=== PATIENT | male | born 1960 | race American Indian/Alaskan Native ===

== ENCOUNTER 2016-12-15 03:51 | Emergency (ER) | payer MEDICAID ==
[~2016-12-15] VITALS: Ht 170.2 cm; Wt 70.0 kg
[2016-12-15] MEDS ORDERED: PROPOFOL 0 ML IV ONE (03:58)
[2016-12-15] MEDS ORDERED: PROPOFOL 10 MG/ML, 20ML ONE (03:58)
[2016-12-15 07:08] VITALS: BP 106/70
== END 2016-12-15 08:40 | disposition home or self-care (01) ==
LOC: ED 08:15 → EDBD 08:15 → MERGE 08:15 → ED 08:40
DX: F10.20 Alcohol dependence, uncomplicated (principal); Y90.9 Presence of alcohol in blood, level not specified
CPT/HCPCS: 99283

== ENCOUNTER 2017-06-26 09:45 | Emergency (ER) | payer MEDICAID ==
[~2017-06-26] VITALS: Ht 167.6 cm; Wt 68.0 kg
[2017-06-26 09:50] VITALS: BP 119/78
[2017-06-26] MEDS ORDERED: MORPHINE SULFATE 4 MG/ML, 1ML IVPush PRN (10:30)
[2017-06-26] MEDS ORDERED: SODIUM CHLORIDE 0.9% 1,000ML IV ONE (10:30)
[2017-06-26] MEDS ORDERED: SODIUM CHLORIDE FLUSH 10ML SYR IVF ONE (10:30)
[2017-06-26 11:19] LABS: HEMOGLOBIN 15.1 g/dL (13.7-18.0); WHITE BLOOD COUNT 9.1 x10^3/uL (3.4-10)
[2017-06-26 11:31] LABS: ASPARTATE AMINO TRANSFERASE 23 U/L (15-37); BLOOD UREA NITROGEN 5 mg/dL (7-18)
== END 2017-06-26 13:43 | disposition left against medical advice (07) ==
LOC: ED 10:11
DX: G89.29 Other chronic pain (principal); M54.5 Low back pain; Z95.0 Presence of cardiac pacemaker; Z95.1 Presence of aortocoronary bypass graft; Z95.2 Presence of prosthetic heart valve
CPT/HCPCS: 36415; 72110; 80053; 83605; 85025; 85651; 87040; 99285

== ENCOUNTER 2018-04-17 00:11 | Emergency (ER) | payer MEDICAID ==
[~2018-04-17] VITALS: Ht 182.9 cm; Wt 100.0 kg
[~2018-04-17 00:11] MED LIST: ACET325T14 PO; ARIP10TA33 PO; BENZ1TAB61 PO; CEFD300C37 PO; DOXY100T PO; IPRA3AMP30 NPPB; LACT10SO5 PO; PRED5TAB PO
[2018-04-17 00:18] VITALS: BP 114/68
== END 2018-04-17 01:39 | disposition home or self-care (01) ==
LOC: ED 01:01
DX: M79.671 Pain in right foot (principal); M79.672 Pain in left foot
CPT/HCPCS: 99283

== ENCOUNTER 2018-04-20 12:12 | Inpatient (IN) | payer MEDICAID ==
[~2018-04-20] VITALS: Ht 167.6 cm; Wt 78.6 kg
[2018-04-20] MEDS ORDERED: ACETAMINOPHEN 500 MG TABLET PO ONE (12:30)
[2018-04-20] MEDS ORDERED: SODIUM CHLORIDE 0.9% 1,000ML IVBOLUS ONE (12:30)
[2018-04-20 12:56] LABS: MEAN CORPUSCULAR HEMOGLOBIN 32.9 pg (27.5-34.5); MEAN CORPUSCULAR HGB CONC 34.2 g/dL (33.2-36.2); MEAN CORPUSCULAR VOLUME 96.2 fL (81-97); MEAN PLATELET VOLUME 8.4 fL (7.4-10.4); PLATELET COUNT 140 x10^3/uL (130-400); RED BLOOD COUNT 4.77 x10^6/uL (4.38-5.82); RED CELL DISTRIBUTION WIDTH 14.8 % (9.4-14.8)
[2018-04-20 13:07] LABS: ALANINE AMINOTRANSFERASE 32 U/L (12-78); ALBUMIN 3.4 g/dL (3.4-5.0); ANION GAP 4 mmol/L (5-15); CALCIUM 7.8 mg/dL (8.5-10.1); CHLORIDE 100 mmol/L (98-107); CREATININE 0.76 mg/dL (0.7-1.3)
[2018-04-20 13:09] LABS: ALKALINE PHOSPHATASE 76 U/L (45-117); BILIRUBIN,TOTAL 1.3 mg/dL (0.2-1.0); TOTAL PROTEIN 6.6 g/dL (6.4-8.2)
[2018-04-20 13:23] LABS: MD YES
[2018-04-20 13:25] LABS: <PLATELET ESTIMATE> ADEQUATE; <PLT MORPHOLOGY> NORMAL PLT MORPH; <RBC MORPHOLOGY> NORMAL; BAND#(MANUAL) 0.93 x10^3/uL; BANDS%(MANUAL) 7 % (0-7); LYMPH#(MANUAL) 0.27 x10^3/uL (1-3.4); LYMPHS% (MANUAL) 2 % (22-44); MONOS#(MANUAL) 0.27 x10^3/uL (0.3-2.7); MONOS% (MANUAL) 2 % (2-9); SEG#(MANUAL) 11.84 x10^3/uL (1.8-6.8); SEGS% (MANUAL) 89 % (42-75)
[2018-04-20 13:31] LABS: TROPONIN I 0.032 ng/mL (0.000-0.045)
[2018-04-20] MEDS ORDERED: ACETAMINOPHEN 500 MG TABLET ONE (14:02)
[2018-04-20] MEDS ORDERED: CEFTRIAXONE PMX 1GM/50ML 50 ML IV ONE (14:30)
[2018-04-20] MEDS ORDERED: FUROSEMIDE 40 MG/4 ML ONE (14:48)
[2018-04-20] MEDS ORDERED: CEFTRIAXONE PMX 1GM/50ML 50 ML ONE (14:49)
[2018-04-20] MEDS ORDERED: FUROSEMIDE 40 MG/4 ML IV ONE (15:00)
[2018-04-20] MEDS ORDERED: ENALAPRILAT 1.25 MG/ML, 2ML IVPush PRN (15:30)
[2018-04-20] MEDS ORDERED: ONDANSETRON 2MG/ML, 2ML IVPush PRN (15:30)
[2018-04-20] MEDS ORDERED: CEFTRIAXONE 1,000 MG in SODIUM CHLORIDE 0.9% 50 ML IV SCH (15:30)
[2018-04-20] MEDS ORDERED: ACETAMINOPHEN 325 MG TABLET PO PRN (15:30)
[2018-04-20] MEDS ORDERED: KETOROLAC 30 MG/1 ML IV PRN (15:30)
[2018-04-20] MEDS ORDERED: BISACODYL 10 MG SUPP PR PRN (15:30)
[2018-04-20] MEDS ORDERED: POLYETHYLENE GLYCOL 17 GM PACKET PO PRN (15:30)
[2018-04-20] MEDS ORDERED: DOCUSATE 100 MG CAPSULE PO PRN (15:30)
[2018-04-20 15:58] LABS: HCT (SEDRATE) 42.8 % (39.2-51.8)
[2018-04-20 16:02] LABS: INTERNATIONAL NORMALIZED RATIO 1.19 (0.93-1.1); PROTHROMBIN TIME 12.2 Seconds (9.6-11.5)
[2018-04-20 16:13] LABS: THYROID STIMULATING HORMONE 1.25 mIU/L (0.358-3.740)
[2018-04-20] MEDS ORDERED: ALBUTEROL/IPRATROPIUM 2.5MG/0.5MG, 3 ML NPPB PRN (16:30)
[2018-04-20] MEDS ORDERED: MAGNESIUM SULFATE PMX 2GM/50ML 50 ML IV ONE (17:00)
[2018-04-20] MEDS: SODIUM CHLORIDE 0.9% 1,000 ML IV SCH (17:46)
[2018-04-20 17:55] LABS: TROPONIN I 0.076 ng/mL (0.000-0.045)
[2018-04-20 18:16] LABS: MICROSCOPIC NOT IND
[2018-04-20 18:18] LABS: CULTURE INDICATED? NO
[2018-04-20 18:27] LABS: AMPHETAMINE SCREEN, URINE Negative (Negative); BARBITURATE SCREEN, URINE Negative (Negative); BENZODIAZEPINE SCREEN, URINE Negative (Negative); CANNABINOID SCREEN, URINE Positive (Negative); COCAINE SCREEN, URINE Negative (Negative); METHADONE SCREEN, URINE Negative (Negative); OPIATE SCREEN, URINE Negative (Negative)
[2018-04-20] MEDS: ENOXAPARIN 40 MG/0.4 ML SQ SCH (18:32)
[2018-04-20 18:38] LABS: RAPID INFLUENZA A Negative (Negative); RAPID INFLUENZA B Negative (Negative)
[2018-04-20] MEDS: ALBUTEROL/IPRATROPIUM 2.5MG/0.5MG, 3 ML NPPB SCH (19:25)
[2018-04-20] MEDS: DOXYCYCLINE 100 MG in DEXTROSE 5% 250 ML IV SCH (20:12)
[2018-04-20] MEDS: methylPREDNISolone SOD SUCC 125 MG/2 ML IVPush SCH (20:14)
[2018-04-20] MEDS: GUAIFENESIN ER 600 MG TABLET PO SCH (20:15)
[2018-04-20] MEDS: LACTULOSE 20 GM/30 ML UDC PO SCH (20:17)
[2018-04-20 20:24] VITALS: BP 103/65
[2018-04-20] MEDS ORDERED: VANCOMYCIN PMX 1GM/200ML 200 ML IV ONE (23:30)
[2018-04-20 23:43] VITALS: BP 106/67
[2018-04-21 00:59] VITALS: BP_SYST 110; BP_SYST 117; BP_DIAS 59; BP_DIAS 66
[2018-04-21] MEDS: methylPREDNISolone SOD SUCC 125 MG/2 ML IVPush SCH ×4 (02:53→20:42)
[2018-04-21 03:00] VITALS: BP 107/69
[2018-04-21 03:04] LABS: CLOSTRIDIUM DIFFICILE ANTIGEN NEGATIVE; CLOSTRIDIUM DIFFICILE TOXIN NEGATIVE (Negative)
[2018-04-21 05:34] LABS: ALANINE AMINOTRANSFERASE 31 U/L (12-78); ALBUMIN 2.8 g/dL (3.4-5.0); ANION GAP 7 mmol/L (5-15); CALCIUM 7.7 mg/dL (8.5-10.1); CHLORIDE 102 mmol/L (98-107); CREATININE 0.45 mg/dL (0.7-1.3)
[2018-04-21 05:36] LABS: ALKALINE PHOSPHATASE 57 U/L (45-117); TOTAL PROTEIN 5.8 g/dL (6.4-8.2)
[2018-04-21 05:58] LABS: MEAN CORPUSCULAR HEMOGLOBIN 32.9 pg (27.5-34.5); MEAN CORPUSCULAR HGB CONC 33.9 g/dL (33.2-36.2); MEAN PLATELET VOLUME 8.4 fL (7.4-10.4); PLATELET COUNT 99 x10^3/uL (130-400); RED BLOOD COUNT 4.41 x10^6/uL (4.38-5.82)
[2018-04-21 05:59] LABS: MD YES
[2018-04-21 06:00] LABS: LYMPH#(MANUAL) 0.59 x10^3/uL (1-3.4); LYMPHS% (MANUAL) 3 % (22-44); MONOS% (MANUAL) 1 % (2-9)
[2018-04-21 06:01] LABS: <RBC MORPHOLOGY> NORMAL; BAND#(MANUAL) 3.71 x10^3/uL; BANDS%(MANUAL) 19 % (0-7); SEG#(MANUAL) 15.02 x10^3/uL (1.8-6.8); SEGS% (MANUAL) 77 % (42-75)
[2018-04-21 06:02] LABS: <PLATELET ESTIMATE> DECREASED; <PLT MORPHOLOGY> NORMAL PLT MORPH; PMNS WITH VACUOLES 1+
[2018-04-21] MEDS ORDERED: VANCOMYCIN PER PHARMACY MC PRN (07:00)
[2018-04-21] MEDS: ALBUTEROL/IPRATROPIUM 2.5MG/0.5MG, 3 ML NPPB SCH ×4 (07:15→19:41)
[2018-04-21 07:22] VITALS: BP 95/54
[2018-04-21] MEDS ORDERED: PHARMACOKINETIC MONITORING MC PRN (07:30)
[2018-04-21] MEDS ORDERED: VANCOMYCIN 1,600 MG in SODIUM CHLORIDE 0.9% 250 ML IV SCH (07:30)
[2018-04-21] MEDS ORDERED: FUROSEMIDE 40 MG/4 ML IV SCH (09:00)
[2018-04-21] MEDS: DOXYCYCLINE 100 MG in DEXTROSE 5% 250 ML IV SCH (09:45)
[2018-04-21] MEDS: LACTULOSE 20 GM/30 ML UDC PO SCH ×2 (09:47→20:42)
[2018-04-21] MEDS: GUAIFENESIN ER 600 MG TABLET PO SCH ×2 (09:49→20:42)
[2018-04-21 12:13] VITALS: BP 94/56
[2018-04-21] MEDS ORDERED: CEFTRIAXONE 1,000 MG in SODIUM CHLORIDE 0.9% 50 ML IV SCH (15:00)
[2018-04-21] MEDS: SODIUM CHLORIDE 0.9% 1,000 ML IV SCH (17:54)
[2018-04-21] MEDS: ENOXAPARIN 40 MG/0.4 ML SQ SCH (17:54)
[2018-04-21 18:46] VITALS: BP 99/60
[2018-04-22] MEDS: VANCOMYCIN 1,600 MG in SODIUM CHLORIDE 0.9% 250 ML IV SCH ×2 (00:02→13:22)
[2018-04-22 01:03] VITALS: BP 100/64
[2018-04-22] MEDS: methylPREDNISolone SOD SUCC 125 MG/2 ML IVPush SCH ×4 (03:07→20:19)
[2018-04-22] MEDS: SODIUM CHLORIDE 0.9% 1,000 ML IV SCH ×2 (05:28→20:19)
[2018-04-22] MEDS: ALBUTEROL/IPRATROPIUM 2.5MG/0.5MG, 3 ML NPPB SCH (06:13)
[2018-04-22 07:25] VITALS: BP 109/70
[2018-04-22 08:55] LABS: ALBUMIN 2.7 g/dL (3.4-5.0); ANION GAP 6 mmol/L (5-15); CALCIUM 7.7 mg/dL (8.5-10.1); CHLORIDE 102 mmol/L (98-107)
[2018-04-22 08:59] LABS: ALANINE AMINOTRANSFERASE 30 U/L (12-78); ALKALINE PHOSPHATASE 51 U/L (45-117); BILIRUBIN,TOTAL 0.4 mg/dL (0.2-1.0); CREATININE 0.41 mg/dL (0.7-1.3); TOTAL PROTEIN 5.9 g/dL (6.4-8.2)
[2018-04-22 09:06] LABS: MEAN CORPUSCULAR HEMOGLOBIN 32.6 pg (27.5-34.5); MEAN CORPUSCULAR HGB CONC 33.7 g/dL (33.2-36.2); MEAN CORPUSCULAR VOLUME 96.6 fL (81-97); MEAN PLATELET VOLUME 8.9 fL (7.4-10.4); PLATELET COUNT 100 x10^3/uL (130-400); RED BLOOD COUNT 4.28 x10^6/uL (4.38-5.82); RED CELL DISTRIBUTION WIDTH 14.6 % (9.4-14.8)
[2018-04-22] MEDS: LACTULOSE 20 GM/30 ML UDC PO SCH ×2 (09:29→20:19)
[2018-04-22] MEDS: GUAIFENESIN ER 600 MG TABLET PO SCH ×2 (09:29→20:19)
[2018-04-22 10:24] LABS: BASOPHILS % (AUTO) 0 % (0-1); EOSINOPHILS % (AUTO) 0 % (1-7); LYMPHOCYTES # (AUTO) 0.34 x10^3/uL (1-3.4); LYMPHOCYTES % (AUTO) 2 % (22-44); MD SCAN; MONOCYTES # (AUTO) 0.28 x10^3/uL (0.2-0.8); MONOCYTES % (AUTO) 2 % (2-9); NEUTROPHILS # (AUTO) 13.98 x10^3/uL (1.8-6.8); NEUTROPHILS % (AUTO) 96 % (42-75)
[2018-04-22 12:11] VITALS: BP 108/66
[2018-04-22] MEDS ORDERED: CEFAZOLIN PMX 2GM/50ML 50 ML IV SCH (14:00)
[2018-04-22 17:03] VITALS: BP 112/62
[2018-04-22] MEDS: ENOXAPARIN 40 MG/0.4 ML SQ SCH (17:45)
[2018-04-22 19:06] VITALS: BP 107/63
[2018-04-22] MEDS: CEFAZOLIN 2,000 MG in SODIUM CHLORIDE 0.9% 50 ML IVPB SCH (21:25)
[2018-04-23] MEDS: VANCOMYCIN 1,600 MG in SODIUM CHLORIDE 0.9% 250 ML IV SCH (00:10)
[2018-04-23 01:35] VITALS: BP 126/73
[2018-04-23] MEDS: methylPREDNISolone SOD SUCC 125 MG/2 ML IVPush SCH ×4 (03:12→20:15)
[2018-04-23 05:18] LABS: BASOPHILS % (AUTO) 0 % (0-1); EOSINOPHILS % (AUTO) 0 % (1-7); LYMPHOCYTES # (AUTO) 0.43 x10^3/uL (1-3.4); LYMPHOCYTES % (AUTO) 5 % (22-44); MD NO; MEAN CORPUSCULAR HEMOGLOBIN 32.4 pg (27.5-34.5); MEAN CORPUSCULAR HGB CONC 33.9 g/dL (33.2-36.2); MEAN CORPUSCULAR VOLUME 95.7 fL (81-97); MEAN PLATELET VOLUME 9.1 fL (7.4-10.4); MONOCYTES % (AUTO) 5 % (2-9); NEUTROPHILS # (AUTO) 7.32 x10^3/uL (1.8-6.8); NEUTROPHILS % (AUTO) 90 % (42-75); PLATELET COUNT 107 x10^3/uL (130-400); RED BLOOD COUNT 4.11 x10^6/uL (4.38-5.82); RED CELL DISTRIBUTION WIDTH 14.7 % (9.4-14.8)
[2018-04-23 05:29] LABS: ALANINE AMINOTRANSFERASE 33 U/L (12-78); ALBUMIN 2.6 g/dL (3.4-5.0); ANION GAP 6 mmol/L (5-15); CALCIUM 7.8 mg/dL (8.5-10.1); CHLORIDE 101 mmol/L (98-107); CREATININE 0.45 mg/dL (0.7-1.3)
[2018-04-23 05:35] LABS: ALKALINE PHOSPHATASE 57 U/L (45-117); BILIRUBIN,TOTAL 0.3 mg/dL (0.2-1.0); HCT (SEDRATE) 39.4 % (39.2-51.8); TOTAL PROTEIN 5.4 g/dL (6.4-8.2)
[2018-04-23] MEDS: CEFAZOLIN 2,000 MG in SODIUM CHLORIDE 0.9% 50 ML IVPB SCH ×3 (05:49→21:38)
[2018-04-23 06:55] VITALS: BP 122/72
[2018-04-23] MEDS: GUAIFENESIN ER 600 MG TABLET PO SCH ×2 (09:28→20:15)
[2018-04-23] MEDS: LACTULOSE 20 GM/30 ML UDC PO SCH ×2 (09:28→20:15)
[2018-04-23 13:19] VITALS: BP 136/81
[2018-04-23] MEDS: SODIUM CHLORIDE 0.9% 1,000 ML IV SCH (14:12)
[2018-04-23] MEDS: ENOXAPARIN 40 MG/0.4 ML SQ SCH (16:14)
[2018-04-23 18:46] VITALS: BP 156/83
[2018-04-24 01:14] VITALS: BP 124/70
[2018-04-24] MEDS: methylPREDNISolone SOD SUCC 125 MG/2 ML IVPush SCH ×4 (03:01→20:51)
[2018-04-24] MEDS: CEFAZOLIN 2,000 MG in SODIUM CHLORIDE 0.9% 50 ML IVPB SCH ×3 (06:25→22:08)
[2018-04-24] MEDS: SODIUM CHLORIDE 0.9% 1,000 ML IV SCH ×2 (06:25→17:52)
[2018-04-24 07:11] VITALS: BP 151/86
[2018-04-24] MEDS: LACTULOSE 20 GM/30 ML UDC PO SCH ×2 (08:48→20:51)
[2018-04-24] MEDS: GUAIFENESIN ER 600 MG TABLET PO SCH ×2 (08:48→20:51)
[2018-04-24] MEDS: RIFAMPIN 300 MG CAPSULE PO SCH (12:58)
[2018-04-24 15:15] VITALS: BP 138/84
[2018-04-24] MEDS: ENOXAPARIN 40 MG/0.4 ML SQ SCH (17:05)
[2018-04-24 18:29] VITALS: BP 134/74
[2018-04-25 01:18] VITALS: BP 139/87
[2018-04-25] MEDS: methylPREDNISolone SOD SUCC 125 MG/2 ML IVPush SCH ×4 (03:07→23:27)
[2018-04-25] MEDS: CEFAZOLIN 2,000 MG in SODIUM CHLORIDE 0.9% 50 ML IVPB SCH ×3 (06:03→23:27)
[2018-04-25 06:26] LABS: HEMOGLOBIN A1C 5.7 % (4.2-6.3)
[2018-04-25 07:00] VITALS: BP 160/82
[2018-04-25] MEDS: LACTULOSE 20 GM/30 ML UDC PO SCH ×2 (09:23→20:31)
[2018-04-25] MEDS: RIFAMPIN 300 MG CAPSULE PO SCH (09:23)
[2018-04-25] MEDS: GUAIFENESIN ER 600 MG TABLET PO SCH ×2 (09:23→20:31)
[2018-04-25 13:30] VITALS: BP 147/79
[2018-04-25] MEDS: SODIUM CHLORIDE 0.9% 1,000 ML IV SCH (18:32)
[2018-04-25] MEDS: ENOXAPARIN 40 MG/0.4 ML SQ SCH (18:32)
[2018-04-25 20:21] VITALS: BP 141/86
[2018-04-26 01:22] VITALS: BP 153/87
[2018-04-26] MEDS: methylPREDNISolone SOD SUCC 125 MG/2 ML IVPush SCH ×3 (05:36→17:58)
[2018-04-26] MEDS: CEFAZOLIN 2,000 MG in SODIUM CHLORIDE 0.9% 50 ML IVPB SCH ×2 (06:37→16:06)
[2018-04-26] MEDS: SODIUM CHLORIDE 0.9% 1,000 ML IV SCH (06:37)
[2018-04-26 07:35] VITALS: BP 152/85
[2018-04-26] MEDS: GUAIFENESIN ER 600 MG TABLET PO SCH ×2 (09:39→20:25)
[2018-04-26] MEDS: LACTULOSE 20 GM/30 ML UDC PO SCH ×2 (09:39→20:25)
[2018-04-26] MEDS: RIFAMPIN 300 MG CAPSULE PO SCH (09:39)
[2018-04-26 15:13] VITALS: BP 153/83
[2018-04-26] MEDS: ENOXAPARIN 40 MG/0.4 ML SQ SCH (17:58)
[2018-04-26 18:44] VITALS: BP 131/76
[2018-04-27] MEDS: CEFAZOLIN 2,000 MG in SODIUM CHLORIDE 0.9% 50 ML IVPB SCH ×3 (00:22→16:23)
[2018-04-27] MEDS: methylPREDNISolone SOD SUCC 125 MG/2 ML IVPush SCH ×2 (00:22→06:14)
[2018-04-27 01:44] VITALS: BP 140/75
[2018-04-27 05:01] LABS: BASOPHILS % (AUTO) 0 % (0-1); EOSINOPHILS # (AUTO) 0.02 x10^3/uL (0-0.4); EOSINOPHILS % (AUTO) 0 % (1-7); LYMPHOCYTES # (AUTO) 1.16 x10^3/uL (1-3.4); LYMPHOCYTES % (AUTO) 11 % (22-44); MD NO; MEAN CORPUSCULAR HEMOGLOBIN 32.4 pg (27.5-34.5); MEAN CORPUSCULAR HGB CONC 33.5 g/dL (33.2-36.2); MEAN CORPUSCULAR VOLUME 96.8 fL (81-97); MEAN PLATELET VOLUME 8.6 fL (7.4-10.4); MONOCYTES # (AUTO) 0.84 x10^3/uL (0.2-0.8); MONOCYTES % (AUTO) 8 % (2-9); NEUTROPHILS # (AUTO) 8.47 x10^3/uL (1.8-6.8); NEUTROPHILS % (AUTO) 81 % (42-75); PLATELET COUNT 162 x10^3/uL (130-400); RED BLOOD COUNT 4.94 x10^6/uL (4.38-5.82); RED CELL DISTRIBUTION WIDTH 14.8 % (9.4-14.8)
[2018-04-27 05:06] LABS: ALBUMIN 2.8 g/dL (3.4-5.0); ANION GAP 7 mmol/L (5-15); CALCIUM 7.8 mg/dL (8.5-10.1); CHLORIDE 96 mmol/L (98-107)
[2018-04-27 05:09] LABS: ALANINE AMINOTRANSFERASE 30 U/L (12-78); ALKALINE PHOSPHATASE 82 U/L (45-117); BILIRUBIN,TOTAL 0.4 mg/dL (0.2-1.0); CREATININE 0.56 mg/dL (0.7-1.3)
[2018-04-27 07:01] VITALS: BP 130/87
[2018-04-27] MEDS: LACTULOSE 20 GM/30 ML UDC PO SCH ×2 (08:21→19:41)
[2018-04-27] MEDS: GUAIFENESIN ER 600 MG TABLET PO SCH ×2 (08:21→19:41)
[2018-04-27] MEDS: RIFAMPIN 300 MG CAPSULE PO SCH (08:22)
[2018-04-27 13:05] VITALS: BP 129/83
[2018-04-27] MEDS: ENOXAPARIN 40 MG/0.4 ML SQ SCH (16:23)
[2018-04-27 18:52] VITALS: BP 107/69
[2018-04-28] MEDS: CEFAZOLIN 2,000 MG in SODIUM CHLORIDE 0.9% 50 ML IVPB SCH ×3 (00:07→16:41)
[2018-04-28 01:28] VITALS: BP 131/80
[2018-04-28 06:50] VITALS: BP 149/96
[2018-04-28] MEDS: RIFAMPIN 300 MG CAPSULE PO SCH (08:40)
[2018-04-28] MEDS: LACTULOSE 20 GM/30 ML UDC PO SCH ×2 (08:40→21:44)
[2018-04-28] MEDS: GUAIFENESIN ER 600 MG TABLET PO SCH ×2 (08:40→21:44)
[2018-04-28 13:39] VITALS: BP 124/82
[2018-04-28] MEDS: ENOXAPARIN 40 MG/0.4 ML SQ SCH (16:41)
[2018-04-28 19:03] VITALS: BP 146/71
[2018-04-29] MEDS: CEFAZOLIN 2,000 MG in SODIUM CHLORIDE 0.9% 50 ML IVPB SCH ×2 (00:13→08:00)
[2018-04-29 01:08] VITALS: BP 130/84
[2018-04-29 06:44] VITALS: BP 116/86
[2018-04-29] MEDS: GUAIFENESIN ER 600 MG TABLET PO SCH (09:00)
[2018-04-29] MEDS: RIFAMPIN 300 MG CAPSULE PO SCH (09:00)
[2018-04-29] MEDS: LACTULOSE 20 GM/30 ML UDC PO SCH (09:00)
== END 2018-04-29 08:55 | disposition left against medical advice (07) | DRG 871 ==
LOC: ED 12:30 → EDIP 15:20 → 5SO 16:29 → 3NE 04-22 16:00
PROVIDERS: ADMIT Internal Medicine; ATTEND Hospitalist
DX: A41.01 Sepsis due to Methicillin susceptible Staphylococcus aureus (principal); E43 Unspecified severe protein-calorie malnutrition; I50.33 Acute on chronic diastolic (congestive) heart failure; G93.40 Encephalopathy, unspecified; I33.0 Acute and subacute infective endocarditis; J96.01 Acute respiratory failure with hypoxia; E87.1 Hypo-osmolality and hyponatremia; J44.0 Chronic obstructive pulmonary disease with (acute) lower respiratory infection; J44.1 Chronic obstructive pulmonary disease with (acute) exacerbation; R17 Unspecified jaundice; F17.200 Nicotine dependence, unspecified, uncomplicated; J20.9 Acute bronchitis, unspecified; F12.90 Cannabis use, unspecified, uncomplicated; Z53.21 Procedure and treatment not carried out due to patient leaving prior to being seen by health care provider; Z59.0 Homelessness; Z68.28 Body mass index [BMI] 28.0-28.9, adult; Z95.0 Presence of cardiac pacemaker; Z95.3 Presence of xenogenic heart valve; Z79.2 Long term (current) use of antibiotics; Z95.1 Presence of aortocoronary bypass graft
CPT/HCPCS: 36415; 73630; 87400; 99285; J7620; 70450; 71045; 80053; 80307; 81003; 82140; 83036; 83605; 83735; 83880; 84100; 84443; 84484; 85025; 85610; 85651; 86140; 87040; 87077; 87147; 87186; 87324; 93005; 93306; 94640; 96361; 96365; 96375; G0378; J0690; J0696; J1650; J1940; J3370; J7060; J2930; J3475; J7030; J7050; J7512

== ENCOUNTER 2018-05-14 17:24 | Emergency (ER) | payer MEDICAID ==
[~2018-05-14] VITALS: Ht 167.6 cm; Wt 77.7 kg
[2018-05-14 18:28] LABS: ALANINE AMINOTRANSFERASE 27 U/L (12-78); ALBUMIN 2.9 g/dL (3.4-5.0); ANION GAP 7 mmol/L (5-15); CHLORIDE 97 mmol/L (98-107); CREATININE 0.45 mg/dL (0.7-1.3)
[2018-05-14 18:30] LABS: ALKALINE PHOSPHATASE 101 U/L (45-117); BILIRUBIN,TOTAL 0.5 mg/dL (0.2-1.0); TOTAL PROTEIN 6.5 g/dL (6.4-8.2)
[2018-05-14 18:33] LABS: TROPONIN I < 0.015 ng/mL (0.000-0.045)
[2018-05-14 18:35] LABS: BASOPHILS # (AUTO) 0.02 x10^3/uL (0-0.1); BASOPHILS % (AUTO) 1 % (0-1); EOSINOPHILS # (AUTO) 0.18 x10^3/uL (0-0.4); EOSINOPHILS % (AUTO) 4 % (1-7); LYMPHOCYTES # (AUTO) 0.75 x10^3/uL (1-3.4); LYMPHOCYTES % (AUTO) 18 % (22-44); MD NO; MEAN CORPUSCULAR HEMOGLOBIN 33.2 pg (27.5-34.5); MEAN CORPUSCULAR HGB CONC 34.7 g/dL (33.2-36.2); MEAN CORPUSCULAR VOLUME 95.5 fL (81-97); MEAN PLATELET VOLUME 7.3 fL (7.4-10.4); MONOCYTES # (AUTO) 0.42 x10^3/uL (0.2-0.8); MONOCYTES % (AUTO) 10 % (2-9); NEUTROPHILS # (AUTO) 2.91 x10^3/uL (1.8-6.8); NEUTROPHILS % (AUTO) 68 % (42-75); PLATELET COUNT 192 x10^3/uL (130-400); RED BLOOD COUNT 4.33 x10^6/uL (4.38-5.82); RED CELL DISTRIBUTION WIDTH 15.3 % (9.4-14.8)
[2018-05-14] MEDS ORDERED: ALBUTEROL/IPRATROPIUM 2.5MG/0.5MG, 3 ML NPPB ONE (19:00)
[2018-05-14] MEDS ORDERED: ALBUTEROL/IPRATROPIUM 2.5MG/0.5MG, 3 ML ONE (19:07)
[2018-05-14 19:23] VITALS: BP 128/75
== END 2018-05-14 19:49 | disposition home or self-care (01) ==
LOC: ED 19:43
DX: J20.9 Acute bronchitis, unspecified (principal); Z59.0 Homelessness; F20.9 Schizophrenia, unspecified; F17.200 Nicotine dependence, unspecified, uncomplicated
CPT/HCPCS: 36415; 71045; 80053; 84484; 85025; 93005; 94640; 99285; J7620

== ENCOUNTER 2018-05-30 14:36 | Inpatient (IN) | payer MEDICAID ==
[~2018-05-30] VITALS: Ht 162.6 cm; Wt 78.1 kg
[2018-05-30 15:14] LABS: BASOPHILS # (AUTO) 0.12 x10^3/uL (0-0.1); BASOPHILS % (AUTO) 1 % (0-1); EOSINOPHILS # (AUTO) 0.09 x10^3/uL (0-0.4); EOSINOPHILS % (AUTO) 1 % (1-7); LYMPHOCYTES # (AUTO) 1.08 x10^3/uL (1-3.4); LYMPHOCYTES % (AUTO) 12 % (22-44); MD NO; MEAN CORPUSCULAR HEMOGLOBIN 31.5 pg (27.5-34.5); MEAN CORPUSCULAR HGB CONC 33.3 g/dL (33.2-36.2); MEAN CORPUSCULAR VOLUME 94.7 fL (81-97); MEAN PLATELET VOLUME 7.4 fL (7.4-10.4); MONOCYTES # (AUTO) 0.68 x10^3/uL (0.2-0.8); MONOCYTES % (AUTO) 8 % (2-9); NEUTROPHILS # (AUTO) 7.13 x10^3/uL (1.8-6.8); NEUTROPHILS % (AUTO) 78 % (42-75); PLATELET COUNT 229 x10^3/uL (130-400); RED BLOOD COUNT 4.38 x10^6/uL (4.38-5.82)
[2018-05-30 15:26] LABS: ALANINE AMINOTRANSFERASE 26 U/L (12-78); ALBUMIN 3.5 g/dL (3.4-5.0); ANION GAP 11 mmol/L (5-15); CALCIUM 8.2 mg/dL (8.5-10.1); CHLORIDE 97 mmol/L (98-107)
[2018-05-30 15:30] LABS: SALICYLATE LEVEL < 1.7 mg/dL (2.8-20.0)
[2018-05-30 15:31] LABS: ALKALINE PHOSPHATASE 126 U/L (45-117); BILIRUBIN,TOTAL 0.9 mg/dL (0.2-1.0); CREATININE 0.41 mg/dL (0.7-1.3); TOTAL PROTEIN 7.1 g/dL (6.4-8.2); TROPONIN I < 0.015 ng/mL (0.000-0.045)
[2018-05-30 15:33] LABS: ACETAMINOPHEN < 2 mcg/mL (10-30)
[2018-05-30 16:23] LABS: AMPHETAMINE SCREEN, URINE Negative (Negative); BARBITURATE SCREEN, URINE Negative (Negative); BENZODIAZEPINE SCREEN, URINE Negative (Negative); CANNABINOID SCREEN, URINE Positive (Negative); COCAINE SCREEN, URINE Negative (Negative); CULTURE INDICATED? NO; METHADONE SCREEN, URINE Negative (Negative); MICROSCOPIC NOT IND; OPIATE SCREEN, URINE Negative (Negative)
[2018-05-30 16:51] LABS: TROPONIN I < 0.015 ng/mL (0.000-0.045)
[2018-05-30] MEDS ORDERED: NITROGLYCERIN 0.4 MG BOTTLE (25 TABS) SL PRN (17:30)
[2018-05-30] MEDS ORDERED: ONDANSETRON 2MG/ML, 2ML IVPush PRN (17:30)
[2018-05-30] MEDS ORDERED: NITROGLYCERIN 0.4 MG/SPRAY SL PRN (17:30)
[2018-05-30] MEDS ORDERED: BISACODYL 10 MG SUPP PR PRN (17:30)
[2018-05-30] MEDS ORDERED: DOCUSATE 100 MG CAPSULE PO PRN (17:30)
[2018-05-30] MEDS ORDERED: ONDANSETRON ODT 4 MG PO PRN (17:30)
[2018-05-30] MEDS: RIFAMPIN 300 MG CAPSULE PO SCH (17:55)
[2018-05-30 17:56] LABS: THYROID STIMULATING HORMONE 3.21 mIU/L (0.358-3.740)
[2018-05-30] MEDS: SODIUM CHLORIDE 0.9% 1,000 ML IV SCH (18:35)
[2018-05-30] MEDS: ENOXAPARIN 40 MG/0.4 ML SQ SCH (18:47)
[2018-05-30] MEDS: CEFAZOLIN PMX 2GM/50ML 50 ML IVPB SCH (18:47)
[2018-05-30 20:06] VITALS: BP 139/74
[2018-05-30] MEDS ORDERED: ALBUTEROL/IPRATROPIUM 2.5MG/0.5MG, 3 ML NPPB PRN (21:00)
[2018-05-31] MEDS: CEFAZOLIN PMX 2GM/50ML 50 ML IVPB SCH ×4 (01:45→17:25)
[2018-05-31 01:56] VITALS: BP 137/81
[2018-05-31 04:13] VITALS: BP 136/68
[2018-05-31 05:09] LABS: BASOPHILS # (AUTO) 0.03 x10^3/uL (0-0.1); BASOPHILS % (AUTO) 1 % (0-1); EOSINOPHILS # (AUTO) 0.11 x10^3/uL (0-0.4); EOSINOPHILS % (AUTO) 2 % (1-7); LYMPHOCYTES # (AUTO) 1.15 x10^3/uL (1-3.4); LYMPHOCYTES % (AUTO) 16 % (22-44); MD NO; MEAN CORPUSCULAR HGB CONC 33.4 g/dL (33.2-36.2); MEAN CORPUSCULAR VOLUME 95.9 fL (81-97); MEAN PLATELET VOLUME 7.7 fL (7.4-10.4); MONOCYTES # (AUTO) 0.72 x10^3/uL (0.2-0.8); MONOCYTES % (AUTO) 10 % (2-9); NEUTROPHILS # (AUTO) 5.03 x10^3/uL (1.8-6.8); NEUTROPHILS % (AUTO) 71 % (42-75); PLATELET COUNT 221 x10^3/uL (130-400); RED BLOOD COUNT 4.57 x10^6/uL (4.38-5.82); RED CELL DISTRIBUTION WIDTH 15.4 % (9.4-14.8)
[2018-05-31 05:15] LABS: ALBUMIN 3.3 g/dL (3.4-5.0); ANION GAP 6 mmol/L (5-15); CALCIUM 7.8 mg/dL (8.5-10.1); CHLORIDE 103 mmol/L (98-107)
[2018-05-31 05:19] LABS: ALANINE AMINOTRANSFERASE 26 U/L (12-78); ALKALINE PHOSPHATASE 110 U/L (45-117); BILIRUBIN,TOTAL 2.2 mg/dL (0.2-1.0); CREATININE 0.42 mg/dL (0.7-1.3); TOTAL PROTEIN 6.9 g/dL (6.4-8.2)
[2018-05-31] MEDS: FOLIC ACID 1 MG TABLET PO SCH (08:31)
[2018-05-31] MEDS: MULTIVIT.W/IRON, MINERALS ORAL SOL PO SCH (08:31)
[2018-05-31] MEDS: SODIUM CHLORIDE 0.9% 1,000 ML IV SCH (08:31)
[2018-05-31] MEDS: THIAMINE 100MG TABLET PO SCH (08:32)
[2018-05-31] MEDS: RIFAMPIN 300 MG CAPSULE PO SCH (08:32)
[2018-05-31 09:15] VITALS: BP 143/89
[2018-05-31 12:46] LABS: HCT (SEDRATE) 43.9 % (39.2-51.8)
[2018-05-31 13:26] VITALS: BP 119/87
[2018-05-31] MEDS: ENOXAPARIN 40 MG/0.4 ML SQ SCH (17:25)
[2018-05-31 19:20] VITALS: BP 151/88
[2018-06-01 01:50] VITALS: BP 127/88
[2018-06-01] MEDS: CEFAZOLIN PMX 2GM/50ML 50 ML IVPB SCH ×3 (02:50→18:16)
[2018-06-01 05:36] LABS: BASOPHILS # (AUTO) 0.04 x10^3/uL (0-0.1); BASOPHILS % (AUTO) 1 % (0-1); EOSINOPHILS # (AUTO) 0.21 x10^3/uL (0-0.4); EOSINOPHILS % (AUTO) 3 % (1-7); LYMPHOCYTES # (AUTO) 1.38 x10^3/uL (1-3.4); LYMPHOCYTES % (AUTO) 20 % (22-44); MD NO; MEAN CORPUSCULAR HEMOGLOBIN 31.7 pg (27.5-34.5); MEAN CORPUSCULAR HGB CONC 33.5 g/dL (33.2-36.2); MEAN CORPUSCULAR VOLUME 94.4 fL (81-97); MEAN PLATELET VOLUME 7.5 fL (7.4-10.4); MONOCYTES # (AUTO) 0.61 x10^3/uL (0.2-0.8); MONOCYTES % (AUTO) 9 % (2-9); NEUTROPHILS # (AUTO) 4.57 x10^3/uL (1.8-6.8); NEUTROPHILS % (AUTO) 67 % (42-75); PLATELET COUNT 202 x10^3/uL (130-400); RED BLOOD COUNT 4.51 x10^6/uL (4.38-5.82); RED CELL DISTRIBUTION WIDTH 14.9 % (9.4-14.8)
[2018-06-01 05:50] LABS: ALBUMIN 2.9 g/dL (3.4-5.0); ANION GAP 8 mmol/L (5-15); CALCIUM 7.9 mg/dL (8.5-10.1); CHLORIDE 101 mmol/L (98-107)
[2018-06-01 05:55] LABS: ALANINE AMINOTRANSFERASE 23 U/L (12-78); ALKALINE PHOSPHATASE 110 U/L (45-117); BILIRUBIN,TOTAL 0.8 mg/dL (0.2-1.0); CREATININE 0.45 mg/dL (0.7-1.3); TOTAL PROTEIN 6.5 g/dL (6.4-8.2)
[2018-06-01 08:16] VITALS: BP 118/76
[2018-06-01] MEDS: MULTIVIT.W/IRON, MINERALS ORAL SOL PO SCH (08:23)
[2018-06-01] MEDS: FOLIC ACID 1 MG TABLET PO SCH (08:23)
[2018-06-01] MEDS: RIFAMPIN 300 MG CAPSULE PO SCH (08:23)
[2018-06-01] MEDS: THIAMINE 100MG TABLET PO SCH (08:23)
[2018-06-01 13:32] VITALS: BP 110/71
[2018-06-01] MEDS: ENOXAPARIN 40 MG/0.4 ML SQ SCH (18:16)
[2018-06-01 20:03] VITALS: BP 117/73
[2018-06-02 01:10] VITALS: BP 101/65
[2018-06-02] MEDS: CEFAZOLIN PMX 2GM/50ML 50 ML IVPB SCH ×3 (02:39→17:57)
[2018-06-02 08:03] VITALS: BP 102/71
[2018-06-02] MEDS: RIFAMPIN 300 MG CAPSULE PO SCH (08:39)
[2018-06-02] MEDS: THIAMINE 100MG TABLET PO SCH (08:39)
[2018-06-02] MEDS: MULTIVIT.W/IRON, MINERALS ORAL SOL PO SCH (08:39)
[2018-06-02] MEDS: FOLIC ACID 1 MG TABLET PO SCH (08:39)
[2018-06-02] MEDS ORDERED: PROPOFOL 10 MG/ML, 20ML ONE (11:47)
[2018-06-02 12:44] VITALS: BP 112/75
[2018-06-02] MEDS: ENOXAPARIN 40 MG/0.4 ML SQ SCH (17:57)
[2018-06-02 20:15] VITALS: BP 96/60
[2018-06-03 02:00] VITALS: BP 104/67
[2018-06-03] MEDS: CEFAZOLIN PMX 2GM/50ML 50 ML IVPB SCH ×3 (03:03→21:08)
[2018-06-03 06:51] VITALS: BP 119/78
[2018-06-03] MEDS: FOLIC ACID 1 MG TABLET PO SCH (08:31)
[2018-06-03] MEDS: RIFAMPIN 300 MG CAPSULE PO SCH (08:31)
[2018-06-03] MEDS: MULTIVIT.W/IRON, MINERALS ORAL SOL PO SCH (08:32)
[2018-06-03] MEDS: THIAMINE 100MG TABLET PO SCH (08:32)
[2018-06-03 12:04] VITALS: BP 118/78
[2018-06-03] MEDS ORDERED: BENZTROPINE 1 MG TABLET PO PRN (13:30)
[2018-06-03] MEDS: ENOXAPARIN 40 MG/0.4 ML SQ SCH (17:08)
[2018-06-03 20:00] VITALS: BP 111/71
[2018-06-04 02:00] VITALS: BP 115/75
[2018-06-04] MEDS: CEFAZOLIN PMX 2GM/50ML 50 ML IVPB SCH ×3 (04:14→23:35)
[2018-06-04 08:09] VITALS: BP 117/73
[2018-06-04] MEDS: THIAMINE 100MG TABLET PO SCH (08:36)
[2018-06-04] MEDS: MULTIVIT.W/IRON, MINERALS ORAL SOL PO SCH (08:36)
[2018-06-04] MEDS: FOLIC ACID 1 MG TABLET PO SCH (08:36)
[2018-06-04] MEDS: RIFAMPIN 300 MG CAPSULE PO SCH (08:37)
[2018-06-04] MEDS: ARIPIPRAZOLE 10 MG TABLET PO SCH (15:23)
[2018-06-04 16:16] VITALS: BP 100/69
[2018-06-04] MEDS: ENOXAPARIN 40 MG/0.4 ML SQ SCH (18:10)
[2018-06-04 21:10] VITALS: BP 103/66
[2018-06-05 02:45] VITALS: BP 121/79
[2018-06-05 07:10] VITALS: BP 118/77
[2018-06-05] MEDS: CEFAZOLIN PMX 2GM/50ML 50 ML IVPB SCH ×3 (08:56→23:57)
[2018-06-05] MEDS: ARIPIPRAZOLE 10 MG TABLET PO SCH (08:56)
[2018-06-05] MEDS: RIFAMPIN 300 MG CAPSULE PO SCH (08:56)
[2018-06-05] MEDS: FOLIC ACID 1 MG TABLET PO SCH (08:57)
[2018-06-05] MEDS: MULTIVIT.W/IRON, MINERALS ORAL SOL PO SCH (08:57)
[2018-06-05] MEDS: THIAMINE 100MG TABLET PO SCH (08:57)
[2018-06-05 13:00] VITALS: BP 116/73
[2018-06-05] MEDS: ENOXAPARIN 40 MG/0.4 ML SQ SCH (17:49)
[2018-06-05 20:13] VITALS: BP 106/70
[2018-06-06 00:36] VITALS: BP 122/77
[2018-06-06 01:42] VITALS: BP 118/71
[2018-06-06 05:35] LABS: HCT (SEDRATE) 42.9 % (39.2-51.8)
[2018-06-06 06:33] VITALS: BP 106/72
[2018-06-06] MEDS: RIFAMPIN 300 MG CAPSULE PO SCH (09:00)
[2018-06-06] MEDS: THIAMINE 100MG TABLET PO SCH (09:20)
[2018-06-06] MEDS: FOLIC ACID 1 MG TABLET PO SCH (09:20)
[2018-06-06] MEDS: ARIPIPRAZOLE 10 MG TABLET PO SCH (09:20)
[2018-06-06] MEDS: MULTIVIT.W/IRON, MINERALS ORAL SOL PO SCH (11:01)
[2018-06-06] MEDS: CEFAZOLIN PMX 2GM/50ML 50 ML IVPB SCH ×2 (11:01→18:05)
[2018-06-06 12:23] VITALS: BP 103/62
[2018-06-06] MEDS: ENOXAPARIN 40 MG/0.4 ML SQ SCH (18:05)
[2018-06-06 18:58] VITALS: BP 100/57
[2018-06-07 01:38] VITALS: BP 116/75
[2018-06-07] MEDS: CEFAZOLIN PMX 2GM/50ML 50 ML IVPB SCH ×3 (03:45→19:20)
[2018-06-07 06:28] VITALS: BP 110/73
[2018-06-07] MEDS: FOLIC ACID 1 MG TABLET PO SCH (08:00)
[2018-06-07] MEDS: ARIPIPRAZOLE 10 MG TABLET PO SCH (08:01)
[2018-06-07] MEDS: THIAMINE 100MG TABLET PO SCH (08:01)
[2018-06-07] MEDS: MULTIVIT.W/IRON, MINERALS ORAL SOL PO SCH (08:01)
[2018-06-07] MEDS: RIFAMPIN 300 MG CAPSULE PO SCH (08:01)
[2018-06-07 13:43] VITALS: BP 105/71
[2018-06-07] MEDS: ENOXAPARIN 40 MG/0.4 ML SQ SCH (17:29)
[2018-06-07 19:12] VITALS: BP 103/62
[2018-06-08 01:00] VITALS: BP 100/59
[2018-06-08] MEDS: CEFAZOLIN PMX 2GM/50ML 50 ML IVPB SCH ×3 (03:12→19:30)
[2018-06-08 06:48] VITALS: BP 107/73
[2018-06-08] MEDS: MULTIVIT.W/IRON, MINERALS ORAL SOL PO SCH (10:32)
[2018-06-08] MEDS: RIFAMPIN 300 MG CAPSULE PO SCH (10:33)
[2018-06-08] MEDS: FOLIC ACID 1 MG TABLET PO SCH (10:33)
[2018-06-08] MEDS: THIAMINE 100MG TABLET PO SCH (10:33)
[2018-06-08] MEDS: ARIPIPRAZOLE 10 MG TABLET PO SCH (10:33)
[2018-06-08 12:39] VITALS: BP 105/65
[2018-06-08] MEDS: ENOXAPARIN 40 MG/0.4 ML SQ SCH (17:30)
[2018-06-08 18:42] VITALS: BP 105/63
[2018-06-09 01:35] VITALS: BP 94/61
[2018-06-09] MEDS: CEFAZOLIN PMX 2GM/50ML 50 ML IVPB SCH ×3 (03:10→19:42)
[2018-06-09 03:29] LABS: BASOPHILS % (AUTO) 0 % (0-1); EOSINOPHILS # (AUTO) 0.43 x10^3/uL (0-0.4); EOSINOPHILS % (AUTO) 7 % (1-7); HCT (SEDRATE) 41.5 % (39.2-51.8); LYMPHOCYTES # (AUTO) 1.39 x10^3/uL (1-3.4); LYMPHOCYTES % (AUTO) 23 % (22-44); MD NO; MEAN CORPUSCULAR HEMOGLOBIN 32.4 pg (27.5-34.5); MEAN CORPUSCULAR HGB CONC 34.1 g/dL (33.2-36.2); MEAN CORPUSCULAR VOLUME 94.8 fL (81-97); MEAN PLATELET VOLUME 7.8 fL (7.4-10.4); MONOCYTES # (AUTO) 0.61 x10^3/uL (0.2-0.8); MONOCYTES % (AUTO) 10 % (2-9); NEUTROPHILS % (AUTO) 60 % (42-75); PLATELET COUNT 206 x10^3/uL (130-400); RED BLOOD COUNT 4.38 x10^6/uL (4.38-5.82); RED CELL DISTRIBUTION WIDTH 14.4 % (9.4-14.8)
[2018-06-09 03:41] LABS: ALANINE AMINOTRANSFERASE 17 U/L (12-78); ALBUMIN 3.2 g/dL (3.4-5.0); ANION GAP 9 mmol/L (5-15); C-REACTIVE PROTEIN, QUANT 0.59 mg/dL (0.02-0.49); CALCIUM 8.3 mg/dL (8.5-10.1); CHLORIDE 97 mmol/L (98-107); CREATININE 0.52 mg/dL (0.7-1.3)
[2018-06-09 03:44] LABS: ALKALINE PHOSPHATASE 112 U/L (45-117); BILIRUBIN,TOTAL 0.3 mg/dL (0.2-1.0); TOTAL PROTEIN 6.8 g/dL (6.4-8.2)
[2018-06-09 06:36] VITALS: BP 106/72
[2018-06-09] MEDS: FOLIC ACID 1 MG TABLET PO SCH (08:48)
[2018-06-09] MEDS: THIAMINE 100MG TABLET PO SCH (08:48)
[2018-06-09] MEDS: ARIPIPRAZOLE 10 MG TABLET PO SCH (08:48)
[2018-06-09] MEDS: RIFAMPIN 300 MG CAPSULE PO SCH (08:49)
[2018-06-09] MEDS: MULTIVIT.W/IRON, MINERALS ORAL SOL PO SCH (08:51)
[2018-06-09 12:51] VITALS: BP 90/55
[2018-06-09] MEDS: ENOXAPARIN 40 MG/0.4 ML SQ SCH (17:03)
[2018-06-09 19:12] VITALS: BP 107/65
[2018-06-10 01:05] VITALS: BP 100/64
[2018-06-10] MEDS: CEFAZOLIN PMX 2GM/50ML 50 ML IVPB SCH ×3 (04:07→19:59)
[2018-06-10 07:06] VITALS: BP 105/66
[2018-06-10] MEDS: ACETAMINOPHEN 325 MG TABLET PO PRN (08:55)
[2018-06-10] MEDS: RIFAMPIN 300 MG CAPSULE PO SCH (08:56)
[2018-06-10] MEDS: MULTIVIT.W/IRON, MINERALS ORAL SOL PO SCH (08:56)
[2018-06-10] MEDS: FOLIC ACID 1 MG TABLET PO SCH (08:56)
[2018-06-10] MEDS: THIAMINE 100MG TABLET PO SCH (08:56)
[2018-06-10] MEDS: ARIPIPRAZOLE 10 MG TABLET PO SCH (08:56)
[2018-06-10 12:32] VITALS: BP 106/66
[2018-06-10] MEDS: ENOXAPARIN 40 MG/0.4 ML SQ SCH (17:12)
[2018-06-10 18:42] VITALS: BP 102/55
[2018-06-11 01:30] VITALS: BP 99/68
[2018-06-11] MEDS: CEFAZOLIN PMX 2GM/50ML 50 ML IVPB SCH ×3 (04:12→19:58)
[2018-06-11 04:37] LABS: CREATININE 0.44 mg/dL (0.7-1.3)
[2018-06-11 06:30] VITALS: BP 108/67
[2018-06-11] MEDS: FOLIC ACID 1 MG TABLET PO SCH (08:57)
[2018-06-11] MEDS: RIFAMPIN 300 MG CAPSULE PO SCH (08:57)
[2018-06-11] MEDS: ARIPIPRAZOLE 10 MG TABLET PO SCH (08:58)
[2018-06-11] MEDS: THIAMINE 100MG TABLET PO SCH (08:58)
[2018-06-11] MEDS: MULTIVIT.W/IRON, MINERALS ORAL SOL PO SCH (08:59)
[2018-06-11 12:15] VITALS: BP 117/77
[2018-06-11] MEDS: ACETAMINOPHEN 325 MG TABLET PO PRN (14:40)
[2018-06-11] MEDS: ENOXAPARIN 40 MG/0.4 ML SQ SCH (17:34)
[2018-06-11 19:09] VITALS: BP 103/61
[2018-06-12] VITALS: BP 101/65
[2018-06-12] MEDS: CEFAZOLIN PMX 2GM/50ML 50 ML IVPB SCH ×3 (04:14→21:07)
[2018-06-12 08:11] VITALS: BP 107/68
[2018-06-12] MEDS: MULTIVIT.W/IRON, MINERALS ORAL SOL PO SCH (09:00)
[2018-06-12] MEDS: ARIPIPRAZOLE 10 MG TABLET PO SCH (09:58)
[2018-06-12] MEDS: RIFAMPIN 300 MG CAPSULE PO SCH (09:58)
[2018-06-12] MEDS: THIAMINE 100MG TABLET PO SCH (09:58)
[2018-06-12] MEDS: FOLIC ACID 1 MG TABLET PO SCH (09:58)
[2018-06-12 13:58] VITALS: BP 106/72
[2018-06-12] MEDS: ENOXAPARIN 40 MG/0.4 ML SQ SCH (17:30)
[2018-06-12 18:53] VITALS: BP 98/57
[2018-06-13 00:31] VITALS: BP 121/72
[2018-06-13] MEDS: CEFAZOLIN PMX 2GM/50ML 50 ML IVPB SCH ×3 (05:06→21:17)
[2018-06-13 07:15] VITALS: BP 103/60
[2018-06-13] MEDS: RIFAMPIN 300 MG CAPSULE PO SCH (09:57)
[2018-06-13] MEDS: FOLIC ACID 1 MG TABLET PO SCH (09:57)
[2018-06-13] MEDS: MULTIVIT.W/IRON, MINERALS ORAL SOL PO SCH (09:57)
[2018-06-13] MEDS: THIAMINE 100MG TABLET PO SCH (09:58)
[2018-06-13] MEDS: ARIPIPRAZOLE 10 MG TABLET PO SCH (09:58)
[2018-06-13 13:19] VITALS: BP 113/75
[2018-06-13 19:07] VITALS: BP 106/66
[2018-06-13] MEDS: ENOXAPARIN 40 MG/0.4 ML SQ SCH (21:17)
[2018-06-14 00:58] VITALS: BP 112/71
[2018-06-14] MEDS: CEFAZOLIN PMX 2GM/50ML 50 ML IVPB SCH ×3 (04:46→21:30)
[2018-06-14 05:16] LABS: CREATININE 0.48 mg/dL (0.7-1.3)
[2018-06-14 07:35] VITALS: BP 107/68
[2018-06-14] MEDS: ARIPIPRAZOLE 10 MG TABLET PO SCH (09:01)
[2018-06-14] MEDS: RIFAMPIN 300 MG CAPSULE PO SCH (09:02)
[2018-06-14] MEDS: THIAMINE 100MG TABLET PO SCH (09:02)
[2018-06-14] MEDS: FOLIC ACID 1 MG TABLET PO SCH (09:03)
[2018-06-14] MEDS: MULTIVIT.W/IRON, MINERALS ORAL SOL PO SCH (09:05)
[2018-06-14 15:14] VITALS: BP 105/65
[2018-06-14 19:27] VITALS: BP 114/68
[2018-06-14] MEDS: ENOXAPARIN 40 MG/0.4 ML SQ SCH (21:30)
[2018-06-15 01:08] VITALS: BP 119/72
[2018-06-15] MEDS: CEFAZOLIN PMX 2GM/50ML 50 ML IVPB SCH ×3 (05:26→21:19)
[2018-06-15 06:40] VITALS: BP 113/78
[2018-06-15] MEDS: MULTIVIT.W/IRON, MINERALS ORAL SOL PO SCH (08:44)
[2018-06-15] MEDS: THIAMINE 100MG TABLET PO SCH (08:45)
[2018-06-15] MEDS: RIFAMPIN 300 MG CAPSULE PO SCH (08:45)
[2018-06-15] MEDS: FOLIC ACID 1 MG TABLET PO SCH (08:45)
[2018-06-15] MEDS: ARIPIPRAZOLE 10 MG TABLET PO SCH (08:45)
[2018-06-15 12:00] VITALS: BP 114/73
[2018-06-15] MEDS: GABAPENTIN 100 MG CAPSULE PO SCH ×3 (13:49→21:20)
[2018-06-15 19:33] VITALS: BP 118/70
[2018-06-15] MEDS: ENOXAPARIN 40 MG/0.4 ML SQ SCH (21:20)
[2018-06-16 01:42] VITALS: BP 104/62
[2018-06-16] MEDS: CEFAZOLIN PMX 2GM/50ML 50 ML IVPB SCH ×3 (05:25→21:25)
[2018-06-16 05:57] LABS: CHLORIDE 101 mmol/L (98-107); HCT (SEDRATE) 42.4 % (39.2-51.8)
[2018-06-16 05:58] LABS: BASOPHILS # (AUTO) 0.03 x10^3/uL (0-0.1); BASOPHILS % (AUTO) 1 % (0-1); EOSINOPHILS # (AUTO) 0.39 x10^3/uL (0-0.4); EOSINOPHILS % (AUTO) 6 % (1-7); LYMPHOCYTES # (AUTO) 1.34 x10^3/uL (1-3.4); LYMPHOCYTES % (AUTO) 22 % (22-44); MD NO; MEAN CORPUSCULAR HEMOGLOBIN 32.2 pg (27.5-34.5); MEAN CORPUSCULAR HGB CONC 34.2 g/dL (33.2-36.2); MEAN CORPUSCULAR VOLUME 94.2 fL (81-97); MEAN PLATELET VOLUME 7.9 fL (7.4-10.4); MONOCYTES # (AUTO) 0.57 x10^3/uL (0.2-0.8); MONOCYTES % (AUTO) 9 % (2-9); NEUTROPHILS # (AUTO) 3.82 x10^3/uL (1.8-6.8); NEUTROPHILS % (AUTO) 62 % (42-75); PLATELET COUNT 212 x10^3/uL (130-400); RED BLOOD COUNT 4.47 x10^6/uL (4.38-5.82); RED CELL DISTRIBUTION WIDTH 14.2 % (9.4-14.8)
[2018-06-16 06:05] LABS: HEMOGLOBIN A1C 5.8 % (4.2-6.3)
[2018-06-16 06:31] LABS: ALANINE AMINOTRANSFERASE 20 U/L (12-78); ALBUMIN 3.3 g/dL (3.4-5.0); ALKALINE PHOSPHATASE 94 U/L (45-117); ANION GAP 6 mmol/L (5-15); BILIRUBIN,TOTAL 0.4 mg/dL (0.2-1.0); C-REACTIVE PROTEIN, QUANT 0.65 mg/dL (0.02-0.49); CALCIUM 8.7 mg/dL (8.5-10.1); CREATININE 0.44 mg/dL (0.7-1.3); TOTAL PROTEIN 6.8 g/dL (6.4-8.2)
[2018-06-16 06:32] VITALS: BP 111/69
[2018-06-16 06:44] LABS: FREE T4 (FREE THYROXINE) 0.71 ng/dL (0.76-1.46)
[2018-06-16] MEDS: FOLIC ACID 1 MG TABLET PO SCH (07:46)
[2018-06-16] MEDS: RIFAMPIN 300 MG CAPSULE PO SCH (07:46)
[2018-06-16] MEDS: ARIPIPRAZOLE 10 MG TABLET PO SCH (07:46)
[2018-06-16] MEDS: MULTIVIT.W/IRON, MINERALS ORAL SOL PO SCH (07:46)
[2018-06-16] MEDS: THIAMINE 100MG TABLET PO SCH (07:46)
[2018-06-16] MEDS: GABAPENTIN 100 MG CAPSULE PO SCH ×3 (07:46→21:25)
[2018-06-16 12:06] VITALS: BP 111/61
[2018-06-16 19:12] VITALS: BP 105/60
[2018-06-16] MEDS: ENOXAPARIN 40 MG/0.4 ML SQ SCH (21:25)
[2018-06-17 01:26] VITALS: BP 103/69
[2018-06-17] MEDS: CEFAZOLIN PMX 2GM/50ML 50 ML IVPB SCH ×3 (05:23→21:02)
[2018-06-17 05:47] LABS: CREATININE 0.46 mg/dL (0.7-1.3)
[2018-06-17 07:48] VITALS: BP 103/71
[2018-06-17] MEDS: ARIPIPRAZOLE 10 MG TABLET PO SCH (10:29)
[2018-06-17] MEDS: RIFAMPIN 300 MG CAPSULE PO SCH (10:29)
[2018-06-17] MEDS: GABAPENTIN 100 MG CAPSULE PO SCH ×3 (10:29→21:02)
[2018-06-17] MEDS: MULTIVIT.W/IRON, MINERALS ORAL SOL PO SCH (10:29)
[2018-06-17] MEDS: THIAMINE 100MG TABLET PO SCH (10:29)
[2018-06-17] MEDS: FOLIC ACID 1 MG TABLET PO SCH (10:30)
[2018-06-17 12:15] VITALS: BP 100/66
[2018-06-17 19:20] VITALS: BP 99/61
[2018-06-17] MEDS: ENOXAPARIN 40 MG/0.4 ML SQ SCH (21:02)
[2018-06-18 01:39] VITALS: BP 117/64
[2018-06-18] MEDS: CEFAZOLIN PMX 2GM/50ML 50 ML IVPB SCH ×3 (06:05→21:51)
[2018-06-18 07:23] VITALS: BP 98/58
[2018-06-18] MEDS: THIAMINE 100MG TABLET PO SCH (09:00)
[2018-06-18] MEDS: MULTIVIT.W/IRON, MINERALS ORAL SOL PO SCH (09:12)
[2018-06-18] MEDS: ARIPIPRAZOLE 10 MG TABLET PO SCH (09:13)
[2018-06-18] MEDS: RIFAMPIN 300 MG CAPSULE PO SCH (09:13)
[2018-06-18] MEDS: GABAPENTIN 100 MG CAPSULE PO SCH ×3 (09:13→21:50)
[2018-06-18] MEDS: FOLIC ACID 1 MG TABLET PO SCH (09:13)
[2018-06-18 13:10] VITALS: BP 99/62
[2018-06-18 18:50] VITALS: BP 98/59
[2018-06-18] MEDS: ENOXAPARIN 40 MG/0.4 ML SQ SCH (21:51)
[2018-06-19 01:54] VITALS: BP 105/72
[2018-06-19] MEDS: CEFAZOLIN PMX 2GM/50ML 50 ML IVPB SCH ×3 (05:05→20:24)
[2018-06-19 07:12] VITALS: BP 106/67
[2018-06-19] MEDS: THIAMINE 100MG TABLET PO SCH (09:29)
[2018-06-19] MEDS: FOLIC ACID 1 MG TABLET PO SCH (09:29)
[2018-06-19] MEDS: GABAPENTIN 100 MG CAPSULE PO SCH ×3 (09:29→20:24)
[2018-06-19] MEDS: ARIPIPRAZOLE 10 MG TABLET PO SCH (09:30)
[2018-06-19] MEDS: RIFAMPIN 300 MG CAPSULE PO SCH (09:30)
[2018-06-19] MEDS: MULTIVIT.W/IRON, MINERALS ORAL SOL PO SCH (09:30)
[2018-06-19 12:52] VITALS: BP 111/72
[2018-06-19 18:35] VITALS: BP 129/64
[2018-06-19] MEDS: ENOXAPARIN 40 MG/0.4 ML SQ SCH (20:24)
[2018-06-20 01:18] VITALS: BP 116/74
[2018-06-20] MEDS: CEFAZOLIN PMX 2GM/50ML 50 ML IVPB SCH ×3 (05:14→21:11)
[2018-06-20 05:52] LABS: CREATININE 0.46 mg/dL (0.7-1.3)
[2018-06-20 06:29] VITALS: BP 107/74
[2018-06-20] MEDS: RIFAMPIN 300 MG CAPSULE PO SCH (08:00)
[2018-06-20] MEDS: GABAPENTIN 100 MG CAPSULE PO SCH ×3 (08:01→21:11)
[2018-06-20] MEDS: MULTIVIT.W/IRON, MINERALS ORAL SOL PO SCH (08:02)
[2018-06-20] MEDS: ARIPIPRAZOLE 10 MG TABLET PO SCH (08:02)
[2018-06-20] MEDS: FOLIC ACID 1 MG TABLET PO SCH (08:02)
[2018-06-20] MEDS: THIAMINE 100MG TABLET PO SCH (08:13)
[2018-06-20 12:27] VITALS: BP 103/64
[2018-06-20 18:29] VITALS: BP 112/72
[2018-06-20] MEDS: ENOXAPARIN 40 MG/0.4 ML SQ SCH (21:11)
[2018-06-21 02:08] VITALS: BP 121/75
[2018-06-21] MEDS: CEFAZOLIN PMX 2GM/50ML 50 ML IVPB SCH ×3 (04:22→21:00)
[2018-06-21 06:50] VITALS: BP 108/72
[2018-06-21] MEDS: THIAMINE 100MG TABLET PO SCH (07:55)
[2018-06-21] MEDS: RIFAMPIN 300 MG CAPSULE PO SCH (07:55)
[2018-06-21] MEDS: ARIPIPRAZOLE 10 MG TABLET PO SCH (07:55)
[2018-06-21] MEDS: GABAPENTIN 100 MG CAPSULE PO SCH ×3 (07:55→21:00)
[2018-06-21] MEDS: FOLIC ACID 1 MG TABLET PO SCH (07:55)
[2018-06-21] MEDS: MULTIVIT.W/IRON, MINERALS ORAL SOL PO SCH (08:02)
[2018-06-21 12:13] VITALS: BP 93/65
[2018-06-21 18:22] VITALS: BP 114/61
[2018-06-21] MEDS: ENOXAPARIN 40 MG/0.4 ML SQ SCH (21:00)
[2018-06-22 00:40] VITALS: BP 109/67
[2018-06-22] MEDS: CEFAZOLIN 2,000 MG in SODIUM CHLORIDE 0.9% 50 ML IVPB SCH ×3 (04:18→20:52)
[2018-06-22 06:26] VITALS: BP 128/77
[2018-06-22] MEDS: RIFAMPIN 300 MG CAPSULE PO SCH (10:37)
[2018-06-22] MEDS: THIAMINE 100MG TABLET PO SCH (10:37)
[2018-06-22] MEDS: MULTIVIT.W/IRON, MINERALS ORAL SOL PO SCH (10:37)
[2018-06-22] MEDS: GABAPENTIN 100 MG CAPSULE PO SCH ×3 (10:37→20:52)
[2018-06-22] MEDS: FOLIC ACID 1 MG TABLET PO SCH (10:37)
[2018-06-22] MEDS: ARIPIPRAZOLE 10 MG TABLET PO SCH (10:38)
[2018-06-22 13:37] VITALS: BP 99/66
[2018-06-22 18:46] VITALS: BP 92/60
[2018-06-22] MEDS: ENOXAPARIN 40 MG/0.4 ML SQ SCH (20:52)
[2018-06-23 02:00] VITALS: BP 104/69
[2018-06-23] MEDS: CEFAZOLIN 2,000 MG in SODIUM CHLORIDE 0.9% 50 ML IVPB SCH ×3 (04:17→20:16)
[2018-06-23 04:54] LABS: CREATININE 0.48 mg/dL (0.7-1.3)
[2018-06-23 06:31] VITALS: BP 124/74
[2018-06-23] MEDS: MULTIVIT.W/IRON, MINERALS ORAL SOL PO SCH (07:34)
[2018-06-23] MEDS: FOLIC ACID 1 MG TABLET PO SCH (07:35)
[2018-06-23] MEDS: ARIPIPRAZOLE 10 MG TABLET PO SCH (07:35)
[2018-06-23] MEDS: THIAMINE 100MG TABLET PO SCH (07:35)
[2018-06-23] MEDS: RIFAMPIN 300 MG CAPSULE PO SCH (07:35)
[2018-06-23] MEDS: GABAPENTIN 100 MG CAPSULE PO SCH ×3 (07:35→20:14)
[2018-06-23 12:20] VITALS: BP 96/60
[2018-06-23 19:05] VITALS: BP 103/72
[2018-06-23] MEDS: ENOXAPARIN 40 MG/0.4 ML SQ SCH (20:14)
[2018-06-24 01:24] VITALS: BP 101/66
[2018-06-24] MEDS: CEFAZOLIN 2,000 MG in SODIUM CHLORIDE 0.9% 50 ML IVPB SCH ×3 (04:40→20:27)
[2018-06-24 05:05] LABS: HCT (SEDRATE) 43.8 % (39.2-51.8)
[2018-06-24 06:36] VITALS: BP_SYST 93; BP_SYST 96; BP_DIAS 55; BP_DIAS 67
[2018-06-24] MEDS: GABAPENTIN 100 MG CAPSULE PO SCH ×3 (09:08→20:27)
[2018-06-24] MEDS: RIFAMPIN 300 MG CAPSULE PO SCH (09:09)
[2018-06-24] MEDS: FOLIC ACID 1 MG TABLET PO SCH (09:09)
[2018-06-24] MEDS: THIAMINE 100MG TABLET PO SCH (09:09)
[2018-06-24] MEDS: ARIPIPRAZOLE 10 MG TABLET PO SCH (09:09)
[2018-06-24] MEDS: MULTIVIT.W/IRON, MINERALS ORAL SOL PO SCH (09:11)
[2018-06-24 12:44] VITALS: BP 109/71
[2018-06-24 19:29] VITALS: BP 117/75
[2018-06-24] MEDS: ENOXAPARIN 40 MG/0.4 ML SQ SCH (20:28)
[2018-06-25 01:26] VITALS: BP 114/77
[2018-06-25] MEDS: CEFAZOLIN 2,000 MG in SODIUM CHLORIDE 0.9% 50 ML IVPB SCH ×3 (04:29→20:15)
[2018-06-25 05:53] VITALS: BP 107/71
[2018-06-25 06:45] VITALS: BP 107/71
[2018-06-25] MEDS: FOLIC ACID 1 MG TABLET PO SCH (07:41)
[2018-06-25] MEDS: GABAPENTIN 100 MG CAPSULE PO SCH ×3 (07:42→20:15)
[2018-06-25] MEDS: ARIPIPRAZOLE 10 MG TABLET PO SCH (07:42)
[2018-06-25] MEDS: RIFAMPIN 300 MG CAPSULE PO SCH (07:42)
[2018-06-25] MEDS: THIAMINE 100MG TABLET PO SCH (07:42)
[2018-06-25] MEDS: MULTIVIT.W/IRON, MINERALS ORAL SOL PO SCH (07:42)
[2018-06-25 12:17] VITALS: BP 103/62
[2018-06-25 18:30] VITALS: BP 109/69
[2018-06-25] MEDS: ENOXAPARIN 40 MG/0.4 ML SQ SCH (20:15)
[2018-06-26 01:26] VITALS: BP 113/72
[2018-06-26] MEDS: CEFAZOLIN 2,000 MG in SODIUM CHLORIDE 0.9% 50 ML IVPB SCH ×3 (04:27→20:07)
[2018-06-26 05:01] LABS: CREATININE 0.45 mg/dL (0.7-1.3)
[2018-06-26 06:32] VITALS: BP 120/80
[2018-06-26] MEDS: THIAMINE 100MG TABLET PO SCH (09:33)
[2018-06-26] MEDS: GABAPENTIN 100 MG CAPSULE PO SCH ×3 (09:34→20:07)
[2018-06-26] MEDS: RIFAMPIN 300 MG CAPSULE PO SCH (09:34)
[2018-06-26] MEDS: FOLIC ACID 1 MG TABLET PO SCH (09:34)
[2018-06-26] MEDS: ARIPIPRAZOLE 10 MG TABLET PO SCH (09:35)
[2018-06-26 12:47] VITALS: BP 110/71
[2018-06-26] MEDS: MULTIVIT.W/IRON, MINERALS ORAL SOL PO SCH (14:07)
[2018-06-26 18:57] VITALS: BP 91/56
[2018-06-26] MEDS: ENOXAPARIN 40 MG/0.4 ML SQ SCH (20:07)
[2018-06-27 01:54] VITALS: BP 107/61
[2018-06-27 02:10] VITALS: BP 107/61
[2018-06-27] MEDS: CEFAZOLIN 2,000 MG in SODIUM CHLORIDE 0.9% 50 ML IVPB SCH ×3 (04:35→20:52)
[2018-06-27 06:55] VITALS: BP 102/66
[2018-06-27] MEDS: GABAPENTIN 100 MG CAPSULE PO SCH ×3 (09:01→19:45)
[2018-06-27] MEDS: RIFAMPIN 300 MG CAPSULE PO SCH (09:01)
[2018-06-27] MEDS: FOLIC ACID 1 MG TABLET PO SCH (09:02)
[2018-06-27] MEDS: THIAMINE 100MG TABLET PO SCH (09:02)
[2018-06-27] MEDS: ARIPIPRAZOLE 10 MG TABLET PO SCH (09:03)
[2018-06-27] MEDS: MULTIVIT.W/IRON, MINERALS ORAL SOL PO SCH (09:03)
[2018-06-27 13:08] VITALS: BP 95/60
[2018-06-27 18:40] VITALS: BP 100/59
[2018-06-27] MEDS: ENOXAPARIN 40 MG/0.4 ML SQ SCH (19:45)
[2018-06-28 01:22] VITALS: BP 122/70
[2018-06-28] MEDS: CEFAZOLIN 2,000 MG in SODIUM CHLORIDE 0.9% 50 ML IVPB SCH (04:24)
[2018-06-28 07:30] VITALS: BP 95/70
[2018-06-28] MEDS: THIAMINE 100MG TABLET PO SCH (08:37)
[2018-06-28] MEDS: CEPHALEXIN 500 MG CAPSULE PO SCH ×3 (08:37→21:51)
[2018-06-28] MEDS: FOLIC ACID 1 MG TABLET PO SCH (08:37)
[2018-06-28] MEDS: RIFAMPIN 300 MG CAPSULE PO SCH (08:37)
[2018-06-28] MEDS: ARIPIPRAZOLE 10 MG TABLET PO SCH (08:38)
[2018-06-28] MEDS: GABAPENTIN 100 MG CAPSULE PO SCH ×3 (08:38→20:04)
[2018-06-28] MEDS: MULTIVIT.W/IRON, MINERALS ORAL SOL PO SCH (08:39)
[2018-06-28] MEDS ORDERED: LIDOCAINE 4% CREAM 5GM TUBE TP PRN (09:30)
[2018-06-28 12:45] VITALS: BP 111/77
[2018-06-28 18:42] VITALS: BP 112/70
[2018-06-28] MEDS: ENOXAPARIN 40 MG/0.4 ML SQ SCH (20:03)
[2018-06-29 01:16] VITALS: BP 109/71
[2018-06-29 05:57] LABS: CREATININE 0.48 mg/dL (0.7-1.3)
[2018-06-29 07:12] VITALS: BP 94/75
[2018-06-29] MEDS: THIAMINE 100MG TABLET PO SCH (08:36)
[2018-06-29] MEDS: CEPHALEXIN 500 MG CAPSULE PO SCH (08:36)
[2018-06-29] MEDS: MULTIVIT.W/IRON, MINERALS ORAL SOL PO SCH (08:36)
[2018-06-29] MEDS: FOLIC ACID 1 MG TABLET PO SCH (08:36)
[2018-06-29] MEDS: GABAPENTIN 100 MG CAPSULE PO SCH ×3 (08:36→22:08)
[2018-06-29] MEDS: ARIPIPRAZOLE 10 MG TABLET PO SCH (08:36)
[2018-06-29 12:43] VITALS: BP 102/74
[2018-06-29 18:35] VITALS: BP 106/64
[2018-06-29] MEDS: ENOXAPARIN 40 MG/0.4 ML SQ SCH (22:09)
[2018-06-30 01:12] VITALS: BP 103/65
[2018-06-30 04:46] LABS: BASOPHILS # (AUTO) 0.03 x10^3/uL (0-0.1); BASOPHILS % (AUTO) 1 % (0-1); EOSINOPHILS # (AUTO) 0.36 x10^3/uL (0-0.4); EOSINOPHILS % (AUTO) 6 % (1-7); HCT (SEDRATE) 42.7 % (39.2-51.8); LYMPHOCYTES # (AUTO) 1.36 x10^3/uL (1-3.4); LYMPHOCYTES % (AUTO) 24 % (22-44); MD NO; MEAN CORPUSCULAR HEMOGLOBIN 32.2 pg (27.5-34.5); MEAN CORPUSCULAR HGB CONC 34.1 g/dL (33.2-36.2); MEAN CORPUSCULAR VOLUME 94.4 fL (81-97); MONOCYTES # (AUTO) 0.54 x10^3/uL (0.2-0.8); MONOCYTES % (AUTO) 10 % (2-9); NEUTROPHILS # (AUTO) 3.41 x10^3/uL (1.8-6.8); NEUTROPHILS % (AUTO) 60 % (42-75); PLATELET COUNT 150 x10^3/uL (130-400); RED CELL DISTRIBUTION WIDTH 14.3 % (9.4-14.8)
[2018-06-30 04:58] LABS: ALANINE AMINOTRANSFERASE 18 U/L (12-78); ALBUMIN 3.1 g/dL (3.4-5.0); ANION GAP 8 mmol/L (5-15); C-REACTIVE PROTEIN, QUANT 0.41 mg/dL (0.02-0.49); CALCIUM 8.2 mg/dL (8.5-10.1); CHLORIDE 103 mmol/L (98-107); CREATININE 0.52 mg/dL (0.7-1.3)
[2018-06-30 04:59] LABS: ALKALINE PHOSPHATASE 82 U/L (45-117); BILIRUBIN,TOTAL 0.3 mg/dL (0.2-1.0); TOTAL PROTEIN 6.4 g/dL (6.4-8.2)
[2018-06-30 07:54] VITALS: BP 107/70
[2018-06-30] MEDS: ARIPIPRAZOLE 10 MG TABLET PO SCH (08:18)
[2018-06-30] MEDS: GABAPENTIN 100 MG CAPSULE PO SCH ×3 (08:18→20:53)
[2018-06-30] MEDS: THIAMINE 100MG TABLET PO SCH (08:18)
[2018-06-30] MEDS: MULTIVIT.W/IRON, MINERALS ORAL SOL PO SCH (08:18)
[2018-06-30] MEDS: FOLIC ACID 1 MG TABLET PO SCH (08:18)
[2018-06-30 14:00] VITALS: BP 106/65
[2018-06-30 14:34] VITALS: BP 99/66
[2018-06-30 18:39] VITALS: BP 120/74
[2018-06-30] MEDS: ENOXAPARIN 40 MG/0.4 ML SQ SCH (20:53)
[2018-07-01 01:01] VITALS: BP 123/76
[2018-07-01 06:49] VITALS: BP 110/69
[2018-07-01] MEDS: MULTIVIT.W/IRON, MINERALS ORAL SOL PO SCH (07:31)
[2018-07-01] MEDS: ARIPIPRAZOLE 10 MG TABLET PO SCH (07:31)
[2018-07-01] MEDS: THIAMINE 100MG TABLET PO SCH (07:31)
[2018-07-01] MEDS: GABAPENTIN 100 MG CAPSULE PO SCH ×3 (07:31→20:17)
[2018-07-01] MEDS: FOLIC ACID 1 MG TABLET PO SCH (07:31)
[2018-07-01 14:05] VITALS: BP 94/61
[2018-07-01 18:51] VITALS: BP 108/73
[2018-07-01] MEDS: ENOXAPARIN 40 MG/0.4 ML SQ SCH (20:17)
[2018-07-02 00:46] VITALS: BP 115/84
[2018-07-02 06:13] LABS: CREATININE 0.46 mg/dL (0.7-1.3)
[2018-07-02 06:46] VITALS: BP 134/71
[2018-07-02] MEDS: THIAMINE 100MG TABLET PO SCH (07:22)
[2018-07-02] MEDS: GABAPENTIN 100 MG CAPSULE PO SCH ×3 (07:22→19:35)
[2018-07-02] MEDS: FOLIC ACID 1 MG TABLET PO SCH (07:22)
[2018-07-02] MEDS: ARIPIPRAZOLE 10 MG TABLET PO SCH (07:22)
[2018-07-02] MEDS: MULTIVIT.W/IRON, MINERALS ORAL SOL PO SCH (07:23)
[2018-07-02 12:30] VITALS: BP 124/79
[2018-07-02 18:38] VITALS: BP 119/73
[2018-07-02] MEDS: ENOXAPARIN 40 MG/0.4 ML SQ SCH (19:36)
[2018-07-03 00:55] VITALS: BP 116/74
[2018-07-03 06:29] VITALS: BP 107/70
[2018-07-03] MEDS: FOLIC ACID 1 MG TABLET PO SCH (08:15)
[2018-07-03] MEDS: THIAMINE 100MG TABLET PO SCH (08:15)
[2018-07-03] MEDS: ARIPIPRAZOLE 10 MG TABLET PO SCH (08:15)
[2018-07-03] MEDS: GABAPENTIN 100 MG CAPSULE PO SCH ×3 (08:15→19:29)
[2018-07-03] MEDS: MULTIVIT.W/IRON, MINERALS ORAL SOL PO SCH (08:15)
[2018-07-03 14:02] VITALS: BP 101/65
[2018-07-03 19:21] VITALS: BP 100/66
[2018-07-03] MEDS: ENOXAPARIN 40 MG/0.4 ML SQ SCH (19:29)
[2018-07-04 03:20] VITALS: BP 108/62
[2018-07-04 08:33] VITALS: BP 118/80
[2018-07-04] MEDS: MULTIVIT.W/IRON, MINERALS ORAL SOL PO SCH (09:00)
[2018-07-04] MEDS ORDERED: MULTIVITAMINS/MINERALS TABLET PO ONE (09:16)
[2018-07-04] MEDS: ARIPIPRAZOLE 10 MG TABLET PO SCH (09:19)
[2018-07-04] MEDS: FOLIC ACID 1 MG TABLET PO SCH (09:20)
[2018-07-04] MEDS: GABAPENTIN 100 MG CAPSULE PO SCH (09:20)
[2018-07-04] MEDS: THIAMINE 100MG TABLET PO SCH (09:20)
[2018-07-04] MEDS ORDERED: CEPH-368 PO (10:53)
[2018-07-04] MEDS ORDERED: ARIP10TA33 PO (16:30)
== END 2018-07-04 12:32 | disposition home or self-care (01) | DRG 314 ==
LOC: ED 17:04 → EDIP 17:05 → ED 17:49 → 4WST 18:04 → 3NE 06-06 01:33
PROVIDERS: ADMIT Hospitalist; ATTEND Internal Medicine
PROC: 02HV33Z Insertion of Infusion Device into Superior Vena Cava, Percutaneous Approach (ICD-10-PCS; principal; 2018-06-04)
PROC: B548ZZA Ultrasonography of Superior Vena Cava, Guidance (ICD-10-PCS; 2018-06-04)
PROC: B5181ZA Fluoroscopy of Superior Vena Cava using Low Osmolar Contrast, Guidance (ICD-10-PCS; 2018-06-04)
DX: T82.6XXA Infection and inflammatory reaction due to cardiac valve prosthesis, initial encounter (principal); E43 Unspecified severe protein-calorie malnutrition; G92 Toxic encephalopathy; E87.1 Hypo-osmolality and hyponatremia; I50.32 Chronic diastolic (congestive) heart failure; F23 Brief psychotic disorder; R78.81 Bacteremia; I38 Endocarditis, valve unspecified; T40.7X1A Poisoning by cannabis (derivatives), accidental (unintentional), initial encounter; E03.9 Hypothyroidism, unspecified; F03.90 Unspecified dementia, unspecified severity, without behavioral disturbance, psychotic disturbance, mood disturbance, and anxiety; F25.0 Schizoaffective disorder, bipolar type; F39 Unspecified mood [affective] disorder; G62.9 Polyneuropathy, unspecified; G89.29 Other chronic pain; I45.81 Long QT syndrome; R09.02 Hypoxemia; K52.9 Noninfective gastroenteritis and colitis, unspecified; J44.9 Chronic obstructive pulmonary disease, unspecified; M54.9 Dorsalgia, unspecified; B95.61 Methicillin susceptible Staphylococcus aureus infection as the cause of diseases classified elsewhere; Y83.8 Other surgical procedures as the cause of abnormal reaction of the patient, or of later complication, without mention of misadventure at the time of the procedure; Y92.89 Other specified places as the place of occurrence of the external cause; Z59.0 Homelessness; Z91.14 Patient's other noncompliance with medication regimen; Z91.83 Wandering in diseases classified elsewhere; Z95.0 Presence of cardiac pacemaker; Z95.1 Presence of aortocoronary bypass graft; Z90.49 Acquired absence of other specified parts of digestive tract; Z68.29 Body mass index [BMI] 29.0-29.9, adult
CPT/HCPCS: 36415; 36569; 70450; 71045; 76937; 77001; 80053; 80307; 80329; 81003; 82140; 82330; 82565; 82607; 82962; 83036; 83605; 83735; 84145; 84439; 84443; 84484; 85025; 85651; 86140; 87040; 87806; 89055; 93005; 93306; 93312; 93321; 93325; 99285; G0378; J0690; J1650; J2704; 92523-GN; C1751; G0475; G0480; J7030

== ENCOUNTER 2018-07-07 22:56 | Emergency (ER) | payer MEDICAID ==
[~2018-07-07] VITALS: Ht 172.7 cm; Wt 85.0 kg
[~2018-07-07 22:56] MED LIST changes: +CEPH-368 PO
[2018-07-07 22:59] VITALS: BP 118/63
[2018-07-07] MEDS ORDERED: CEPHALEXIN 500 MG CAPSULE ONE (23:23)
[2018-07-07] MEDS ORDERED: IBUPROFEN 600 MG TABLET ONE (23:23)
[2018-07-07] MEDS ORDERED: IBUPROFEN 200 MG TABLET PO ONE (23:30)
[2018-07-07] MEDS ORDERED: CEPHALEXIN 500 MG CAPSULE PO ONE (23:30)
== END 2018-07-07 23:40 | disposition home or self-care (01) ==
LOC: ED 23:37
DX: L03.031 Cellulitis of right toe (principal); Z72.9 Problem related to lifestyle, unspecified; F17.200 Nicotine dependence, unspecified, uncomplicated
CPT/HCPCS: 99283

== ENCOUNTER 2018-07-19 01:00 | Inpatient (IN) | payer MEDICAID ==
[~2018-07-19] VITALS: Ht 167.6 cm; Wt 80.6 kg
[2018-07-19] MEDS ORDERED: ALBUTEROL/IPRATROPIUM 2.5MG/0.5MG, 3 ML ONE ×3 (01:11→01:34)
[2018-07-19] MEDS: ALBUTEROL/IPRATROPIUM 2.5MG/0.5MG, 3 ML NPPB SCH ×7 (01:12→22:00)
[2018-07-19] MEDS ORDERED: methylPREDNISolone SOD SUCC 125 MG/2 ML ONE (01:16)
[2018-07-19 01:30] LABS: BASOPHILS # (AUTO) 0.02 x10^3/uL (0-0.1); BASOPHILS % (AUTO) 0 % (0-1); EOSINOPHILS # (AUTO) 0.01 x10^3/uL (0-0.4); EOSINOPHILS % (AUTO) 0 % (1-7); LYMPHOCYTES # (AUTO) 0.98 x10^3/uL (1-3.4); LYMPHOCYTES % (AUTO) 7 % (22-44); MD NO; MEAN CORPUSCULAR HEMOGLOBIN 31.9 pg (27.5-34.5); MEAN CORPUSCULAR HGB CONC 33.4 g/dL (33.2-36.2); MEAN CORPUSCULAR VOLUME 95.4 fL (81-97); MEAN PLATELET VOLUME 7.1 fL (7.4-10.4); MONOCYTES # (AUTO) 1.21 x10^3/uL (0.2-0.8); MONOCYTES % (AUTO) 9 % (2-9); NEUTROPHILS # (AUTO) 11.88 x10^3/uL (1.8-6.8); NEUTROPHILS % (AUTO) 84 % (42-75); PLATELET COUNT 275 x10^3/uL (130-400); RED BLOOD COUNT 4.35 x10^6/uL (4.38-5.82); RED CELL DISTRIBUTION WIDTH 15.3 % (9.4-14.8)
[2018-07-19] MEDS ORDERED: SODIUM CHLORIDE FLUSH 10ML SYR IVF ONE (01:30)
[2018-07-19] MEDS ORDERED: methylPREDNISolone SOD SUCC 125 MG/2 ML IVP ONE (01:30)
[2018-07-19 01:40] LABS: INTERNATIONAL NORMALIZED RATIO 1.1 (0.93-1.1); PROTHROMBIN TIME 11.6 Seconds (9.6-11.5)
[2018-07-19 01:41] LABS: ALANINE AMINOTRANSFERASE 31 U/L (12-78); ALBUMIN 3.1 g/dL (3.4-5.0); ANION GAP 7 mmol/L (5-15); CALCIUM 8.2 mg/dL (8.5-10.1); CHLORIDE 90 mmol/L (98-107); CREATININE 0.44 mg/dL (0.7-1.3)
[2018-07-19 01:45] LABS: ALKALINE PHOSPHATASE 115 U/L (45-117); BILIRUBIN,TOTAL 0.9 mg/dL (0.2-1.0); TOTAL PROTEIN 6.9 g/dL (6.4-8.2); TROPONIN I < 0.015 ng/mL (0.000-0.045)
[2018-07-19] MEDS ORDERED: CEFTRIAXONE 1,000 MG in SODIUM CHLORIDE 0.9% 50 ML IVPB ONE (02:00)
[2018-07-19] MEDS ORDERED: AZITHROMYCIN 500 MG in SODIUM CHLORIDE 0.9% 250 ML IVPB ONE (02:00)
[2018-07-19] MEDS ORDERED: SODIUM CHLORIDE FLUSH 10ML SYR IVF PRN (02:30)
[2018-07-19 03:27] VITALS: BP 106/76
[2018-07-19] MEDS ORDERED: SODIUM CHLORIDE 0.9% 1,000 ML IV SCH (05:40)
[2018-07-19] MEDS ORDERED: hydrALAzine 20 MG/ML, 1ML IVPush PRN (06:00)
[2018-07-19] MEDS ORDERED: ALBUTEROL/IPRATROPIUM 2.5MG/0.5MG, 3 ML NPPB PRN (06:00)
[2018-07-19] MEDS ORDERED: ACETAMINOPHEN 325 MG TABLET PO PRN (06:00)
[2018-07-19] MEDS ORDERED: VANCOMYCIN PER PHARMACY MC PRN (06:00)
[2018-07-19] MEDS ORDERED: POLYETHYLENE GLYCOL 17 GM PACKET PO PRN (06:00)
[2018-07-19] MEDS ORDERED: PHARMACOKINETIC CONSULTATION MC ONE (06:00)
[2018-07-19] MEDS ORDERED: PHARMACOKINETIC MONITORING MC PRN (06:00)
[2018-07-19] MEDS: methylPREDNISolone SOD SUCC 40 MG/ML IVPush SCH ×3 (06:21→17:42)
[2018-07-19] MEDS: PIPERACILLIN/TAZO/PMX 3.375GM 50 ML IV SCH ×3 (06:21→17:42)
[2018-07-19] MEDS: ENOXAPARIN 40 MG/0.4 ML SQ SCH (06:22)
[2018-07-19 08:00] VITALS: BP 112/71
[2018-07-19] MEDS: VANCOMYCIN 1,500 MG in SODIUM CHLORIDE 0.9% 250 ML IV SCH ×2 (08:14→19:46)
[2018-07-19] MEDS: ARIPIPRAZOLE 5 MG TABLET PO SCH (08:14)
[2018-07-19] MEDS: FUROSEMIDE 40 MG/4 ML IV SCH ×2 (08:30→17:42)
[2018-07-19 09:32] LABS: TROPONIN I < 0.015 ng/mL (0.000-0.045)
[2018-07-19] MEDS: POTASSIUM CHLORIDE 20 MEQ TAB.ER.PRT PO SCH (12:05)
[2018-07-19 14:00] VITALS: BP 115/77
[2018-07-19 14:51] LABS: TROPONIN I < 0.015 ng/mL (0.000-0.045)
[2018-07-19 15:11] LABS: AMPHETAMINE SCREEN, URINE Negative (Negative); BARBITURATE SCREEN, URINE Negative (Negative); BENZODIAZEPINE SCREEN, URINE Negative (Negative); CANNABINOID SCREEN, URINE Positive (Negative); COCAINE SCREEN, URINE Negative (Negative); METHADONE SCREEN, URINE Negative (Negative); OPIATE SCREEN, URINE Negative (Negative)
[2018-07-19 19:18] VITALS: BP 108/63
[2018-07-20] MEDS: methylPREDNISolone SOD SUCC 40 MG/ML IVPush SCH ×5 (00:11→23:45)
[2018-07-20] MEDS: PIPERACILLIN/TAZO/PMX 3.375GM 50 ML IV SCH ×5 (00:30→23:44)
[2018-07-20 01:50] VITALS: BP 122/70
[2018-07-20 04:50] LABS: BASOPHILS # (AUTO) 0.02 x10^3/uL (0-0.1); BASOPHILS % (AUTO) 0 % (0-1); EOSINOPHILS % (AUTO) 0 % (1-7); LYMPHOCYTES # (AUTO) 0.53 x10^3/uL (1-3.4); LYMPHOCYTES % (AUTO) 5 % (22-44); MD NO; MEAN CORPUSCULAR HEMOGLOBIN 32.3 pg (27.5-34.5); MEAN CORPUSCULAR HGB CONC 33.4 g/dL (33.2-36.2); MEAN CORPUSCULAR VOLUME 96.5 fL (81-97); MEAN PLATELET VOLUME 6.9 fL (7.4-10.4); MONOCYTES # (AUTO) 0.65 x10^3/uL (0.2-0.8); MONOCYTES % (AUTO) 7 % (2-9); NEUTROPHILS # (AUTO) 8.63 x10^3/uL (1.8-6.8); NEUTROPHILS % (AUTO) 88 % (42-75); PLATELET COUNT 276 x10^3/uL (130-400); RED BLOOD COUNT 3.66 x10^6/uL (4.38-5.82); RED CELL DISTRIBUTION WIDTH 15.2 % (9.4-14.8)
[2018-07-20 04:59] LABS: ALBUMIN 2.8 g/dL (3.4-5.0); CHLORIDE 92 mmol/L (98-107)
[2018-07-20 05:03] LABS: ALANINE AMINOTRANSFERASE 29 U/L (12-78); ALKALINE PHOSPHATASE 92 U/L (45-117); ANION GAP 3 mmol/L (5-15); BILIRUBIN,TOTAL 0.5 mg/dL (0.2-1.0); CREATININE 0.41 mg/dL (0.7-1.3); TOTAL PROTEIN 6.1 g/dL (6.4-8.2)
[2018-07-20] MEDS: ENOXAPARIN 40 MG/0.4 ML SQ SCH (06:20)
[2018-07-20 07:34] VITALS: BP 113/68
[2018-07-20] MEDS: ALBUTEROL/IPRATROPIUM 2.5MG/0.5MG, 3 ML NPPB SCH ×5 (07:35→22:00)
[2018-07-20] MEDS: VANCOMYCIN 1,500 MG in SODIUM CHLORIDE 0.9% 250 ML IV SCH ×2 (08:25→19:56)
[2018-07-20] MEDS: FUROSEMIDE 40 MG/4 ML IV SCH ×2 (08:25→17:35)
[2018-07-20] MEDS: POTASSIUM CHLORIDE 20 MEQ TAB.ER.PRT PO SCH (08:28)
[2018-07-20] MEDS: ARIPIPRAZOLE 5 MG TABLET PO SCH (08:28)
[2018-07-20] MEDS: GUAIFENESIN ER 600 MG TABLET PO SCH ×2 (10:55→19:56)
[2018-07-20 13:14] VITALS: BP 104/67
[2018-07-20 19:32] VITALS: BP 91/46
[2018-07-21 01:08] VITALS: BP 108/63
[2018-07-21] MEDS ORDERED: VANCOMYCIN 1,500 MG in SODIUM CHLORIDE 0.9% 250 ML IV SCH (04:00)
[2018-07-21 05:03] LABS: BASOPHILS # (AUTO) 0.04 x10^3/uL (0-0.1); BASOPHILS % (AUTO) 0 % (0-1); EOSINOPHILS % (AUTO) 0 % (1-7); LYMPHOCYTES # (AUTO) 0.77 x10^3/uL (1-3.4); LYMPHOCYTES % (AUTO) 8 % (22-44); MD NO; MEAN CORPUSCULAR HEMOGLOBIN 32.3 pg (27.5-34.5); MEAN CORPUSCULAR HGB CONC 33.4 g/dL (33.2-36.2); MEAN CORPUSCULAR VOLUME 96.6 fL (81-97); MEAN PLATELET VOLUME 6.8 fL (7.4-10.4); MONOCYTES # (AUTO) 0.84 x10^3/uL (0.2-0.8); MONOCYTES % (AUTO) 8 % (2-9); NEUTROPHILS # (AUTO) 8.25 x10^3/uL (1.8-6.8); NEUTROPHILS % (AUTO) 83 % (42-75); PLATELET COUNT 270 x10^3/uL (130-400); RED BLOOD COUNT 3.76 x10^6/uL (4.38-5.82); RED CELL DISTRIBUTION WIDTH 15.1 % (9.4-14.8)
[2018-07-21 05:11] LABS: ANION GAP 5 mmol/L (5-15); CALCIUM 8.2 mg/dL (8.5-10.1); CHLORIDE 85 mmol/L (98-107); CREATININE 0.45 mg/dL (0.7-1.3)
[2018-07-21 05:12] LABS: VANCOMYCIN,RANDOM 7.5 mcg/mL
[2018-07-21] MEDS: ENOXAPARIN 40 MG/0.4 ML SQ SCH (05:31)
[2018-07-21] MEDS: methylPREDNISolone SOD SUCC 40 MG/ML IVPush SCH (05:31)
[2018-07-21] MEDS: PIPERACILLIN/TAZO/PMX 3.375GM 50 ML IV SCH (05:31)
[2018-07-21] MEDS: ALBUTEROL/IPRATROPIUM 2.5MG/0.5MG, 3 ML NPPB SCH ×5 (06:00→23:15)
[2018-07-21 07:52] VITALS: BP 114/69
[2018-07-21] MEDS ORDERED: VANCOMYCIN 1,800 MG in SODIUM CHLORIDE 0.9% 250 ML IV SCH (08:00)
[2018-07-21] MEDS: FUROSEMIDE 40 MG/4 ML IV SCH ×2 (08:23→17:11)
[2018-07-21] MEDS: ARIPIPRAZOLE 5 MG TABLET PO SCH (08:24)
[2018-07-21] MEDS: GUAIFENESIN ER 600 MG TABLET PO SCH ×2 (08:24→20:16)
[2018-07-21] MEDS: POTASSIUM CHLORIDE 20 MEQ TAB.ER.PRT PO SCH (08:24)
[2018-07-21] MEDS: CEFTRIAXONE PMX 1GM/50ML 50 ML IV SCH (10:21)
[2018-07-21] MEDS: DOXYCYCLINE 100 MG in DEXTROSE 5% 250 ML IV SCH ×2 (11:18→20:16)
[2018-07-21 12:19] VITALS: BP 102/65
[2018-07-21 19:16] VITALS: BP 94/56
[2018-07-22 02:21] VITALS: BP 112/68
[2018-07-22] MEDS: ENOXAPARIN 40 MG/0.4 ML SQ SCH (05:28)
[2018-07-22] MEDS: ALBUTEROL/IPRATROPIUM 2.5MG/0.5MG, 3 ML NPPB SCH ×5 (06:00→22:00)
[2018-07-22 06:03] LABS: BASOPHILS # (AUTO) 0.03 x10^3/uL (0-0.1); BASOPHILS % (AUTO) 0 % (0-1); EOSINOPHILS # (AUTO) 0.08 x10^3/uL (0-0.4); EOSINOPHILS % (AUTO) 1 % (1-7); LYMPHOCYTES # (AUTO) 1.97 x10^3/uL (1-3.4); LYMPHOCYTES % (AUTO) 22 % (22-44); MD NO; MEAN CORPUSCULAR HEMOGLOBIN 32.3 pg (27.5-34.5); MEAN CORPUSCULAR HGB CONC 34.2 g/dL (33.2-36.2); MEAN CORPUSCULAR VOLUME 94.4 fL (81-97); MEAN PLATELET VOLUME 6.9 fL (7.4-10.4); MONOCYTES # (AUTO) 1.07 x10^3/uL (0.2-0.8); MONOCYTES % (AUTO) 12 % (2-9); NEUTROPHILS # (AUTO) 5.84 x10^3/uL (1.8-6.8); NEUTROPHILS % (AUTO) 65 % (42-75); PLATELET COUNT 299 x10^3/uL (130-400); RED BLOOD COUNT 4.38 x10^6/uL (4.38-5.82)
[2018-07-22 06:12] LABS: ANION GAP 8 mmol/L (5-15); CALCIUM 8.5 mg/dL (8.5-10.1); CHLORIDE 88 mmol/L (98-107); CREATININE 0.53 mg/dL (0.7-1.3)
[2018-07-22 07:35] VITALS: BP 108/74
[2018-07-22] MEDS: GUAIFENESIN ER 600 MG TABLET PO SCH ×2 (08:00→20:30)
[2018-07-22] MEDS: FUROSEMIDE 40 MG/4 ML IV SCH (08:00)
[2018-07-22] MEDS: ARIPIPRAZOLE 5 MG TABLET PO SCH (08:00)
[2018-07-22] MEDS: POTASSIUM CHLORIDE 20 MEQ TAB.ER.PRT PO SCH (08:00)
[2018-07-22] MEDS: DOXYCYCLINE 100 MG in DEXTROSE 5% 250 ML IV SCH ×2 (08:01→20:29)
[2018-07-22] MEDS: CEFTRIAXONE PMX 1GM/50ML 50 ML IV SCH (10:05)
[2018-07-22 14:33] VITALS: BP 96/62
[2018-07-22] MEDS: FUROSEMIDE 20 MG TABLET PO SCH (17:21)
[2018-07-22 20:17] VITALS: BP 107/72
[2018-07-23 00:41] VITALS: BP 116/72
[2018-07-23] MEDS: ENOXAPARIN 40 MG/0.4 ML SQ SCH (05:47)
[2018-07-23] MEDS: ALBUTEROL/IPRATROPIUM 2.5MG/0.5MG, 3 ML NPPB SCH ×4 (06:00→18:31)
[2018-07-23 06:33] VITALS: BP 122/93
[2018-07-23] MEDS: DOXYCYCLINE 100 MG in DEXTROSE 5% 250 ML IV SCH ×2 (07:52→21:39)
[2018-07-23] MEDS: GUAIFENESIN ER 600 MG TABLET PO SCH ×2 (07:52→21:27)
[2018-07-23] MEDS: ARIPIPRAZOLE 10 MG TABLET PO SCH (07:53)
[2018-07-23] MEDS: FUROSEMIDE 20 MG TABLET PO SCH ×2 (07:53→17:52)
[2018-07-23] MEDS: POTASSIUM CHLORIDE 20 MEQ TAB.ER.PRT PO SCH (07:53)
[2018-07-23] MEDS: CEFTRIAXONE PMX 1GM/50ML 50 ML IV SCH (09:21)
[2018-07-23] MEDS ORDERED: FURO20TA3 PO (11:04)
[2018-07-23] MEDS ORDERED: DOXY100T9 PO (11:04)
[2018-07-23 14:04] VITALS: BP 116/72
[2018-07-23] MEDS ORDERED: PRED20TA PO (15:56)
[2018-07-23 20:28] VITALS: BP 106/67
[2018-07-24 01:32] VITALS: BP 119/63
[2018-07-24] MEDS: ENOXAPARIN 40 MG/0.4 ML SQ SCH (05:09)
[2018-07-24 06:59] VITALS: BP 114/77
[2018-07-24] MEDS: ALBUTEROL/IPRATROPIUM 2.5MG/0.5MG, 3 ML NPPB SCH ×2 (07:20→11:35)
[2018-07-24] MEDS: CEFTRIAXONE PMX 1GM/50ML 50 ML IV SCH (08:59)
[2018-07-24] MEDS: GUAIFENESIN ER 600 MG TABLET PO SCH (08:59)
[2018-07-24] MEDS: POTASSIUM CHLORIDE 20 MEQ TAB.ER.PRT PO SCH (08:59)
[2018-07-24] MEDS: ARIPIPRAZOLE 10 MG TABLET PO SCH (08:59)
[2018-07-24] MEDS: FUROSEMIDE 20 MG TABLET PO SCH (08:59)
[2018-07-24] MEDS: DOXYCYCLINE 100 MG in DEXTROSE 5% 250 ML IV SCH (09:00)
== END 2018-07-24 12:22 | disposition home or self-care (01) | DRG 291 ==
LOC: ED 01:26 → 3NE 02:07
PROVIDERS: ADMIT Hospitalist; ATTEND Hospitalist
DX: I50.33 Acute on chronic diastolic (congestive) heart failure (principal); J15.9 Unspecified bacterial pneumonia; J96.21 Acute and chronic respiratory failure with hypoxia; E44.0 Moderate protein-calorie malnutrition; E87.1 Hypo-osmolality and hyponatremia; J44.0 Chronic obstructive pulmonary disease with (acute) lower respiratory infection; J44.1 Chronic obstructive pulmonary disease with (acute) exacerbation; E11.9 Type 2 diabetes mellitus without complications; F17.200 Nicotine dependence, unspecified, uncomplicated; F20.9 Schizophrenia, unspecified; I05.0 Rheumatic mitral stenosis; Y95 Nosocomial condition; Z86.14 Personal history of Methicillin resistant Staphylococcus aureus infection; Z86.19 Personal history of other infectious and parasitic diseases; Z91.14 Patient's other noncompliance with medication regimen; Z95.0 Presence of cardiac pacemaker; Z95.1 Presence of aortocoronary bypass graft; Z95.3 Presence of xenogenic heart valve; Z68.28 Body mass index [BMI] 28.0-28.9, adult
CPT/HCPCS: 36415; 36600; 99291; J7620; 70450; 71045; 71046; 80048; 80053; 80202; 80307; 82803; 83605; 83735; 83880; 84100; 84484; 85025; 85610; 85730; 87040; 87070; 87205; 90656; 93005; 93306; 94640; 96365; 96367; 96375; G0378; J0456; J0696; J1650; J1940; J2543; J3370; J7060; 92523-GN; J2920; J2930; J7030; J7050; J7512

== ENCOUNTER 2018-09-29 06:39 | Inpatient (IN) | payer MEDICAID ==
[~2018-09-29] VITALS: Ht 177.8 cm; Wt 73.7 kg
[~2018-09-29 06:39] MED LIST changes: +DOXY100T9 PO; +FURO20TA3 PO; +PRED20TA PO
--- NOTE | 2018-09-29 07:23 | NUR ---
PA at bedside examining pt. Pt states legs hurt. He states he is hearing voices and that he has not taken his meds for same recently. Noted to have an occasional cough
--- NOTE | 2018-09-29 07:37 | NUR ---
RT made aware of order for breathing tx. Pt provided urinal and requested him to give sample.
[2018-09-29] MEDS ORDERED: ALBUTEROL/IPRATROPIUM 2.5MG/0.5MG, 3 ML ONE ×2 (07:43→14:39)
[2018-09-29] MEDS ORDERED: ALBUTEROL/IPRATROPIUM 2.5MG/0.5MG, 3 ML NPPB ONE ×2 (08:00→08:30)
[2018-09-29 08:32] LABS: BASOPHILS # (AUTO) 0.02 x10^3/uL (0-0.1); BASOPHILS % (AUTO) 0 % (0-1); EOSINOPHILS # (AUTO) 0.37 x10^3/uL (0-0.4); EOSINOPHILS % (AUTO) 8 % (1-7); LYMPHOCYTES # (AUTO) 0.98 x10^3/uL (1-3.4); LYMPHOCYTES % (AUTO) 20 % (22-44); MD NO; MEAN CORPUSCULAR HEMOGLOBIN 29.8 pg (27.5-34.5); MEAN CORPUSCULAR HGB CONC 32.8 g/dL (33.2-36.2); MEAN CORPUSCULAR VOLUME 90.8 fL (81-97); MEAN PLATELET VOLUME 7.8 fL (7.4-10.4); MONOCYTES # (AUTO) 0.54 x10^3/uL (0.2-0.8); MONOCYTES % (AUTO) 11 % (2-9); NEUTROPHILS # (AUTO) 2.93 x10^3/uL (1.8-6.8); NEUTROPHILS % (AUTO) 61 % (42-75); PLATELET COUNT 210 x10^3/uL (130-400); RED BLOOD COUNT 4.97 x10^6/uL (4.38-5.82); RED CELL DISTRIBUTION WIDTH 15.1 % (9.4-14.8)
[2018-09-29 08:40] LABS: ALANINE AMINOTRANSFERASE 27 U/L (12-78); ALBUMIN 3.4 g/dL (3.4-5.0); ANION GAP 6 mmol/L (5-15); CALCIUM 8.5 mg/dL (8.5-10.1); CHLORIDE 98 mmol/L (98-107); CREATININE 0.43 mg/dL (0.7-1.3)
[2018-09-29 08:42] LABS: ALKALINE PHOSPHATASE 109 U/L (45-117); BILIRUBIN,TOTAL 0.8 mg/dL (0.2-1.0); TOTAL PROTEIN 6.5 g/dL (6.4-8.2)
--- NOTE | 2018-09-29 09:12 | NUR ---
pt sleeping and remains on oxygen 3L with oxygen saturation 91 percent. Medicated per orders.
--- NOTE | 2018-09-29 09:24 | NUR ---
Pt states he has received two breathing treatments with decreased oxygen saturation. Oxygen turned up to 6L and PA made aware. Continue to monitor
--- NOTE | 2018-09-29 11:23 | NUR ---
report given to mahogany EVANGELISTA. to be transported to [facility]
[2018-09-29 12:11] VITALS: BP 118/75
[2018-09-29] MEDS ORDERED: ONDANSETRON 2MG/ML, 2ML IVPush PRN (13:00)
[2018-09-29] MEDS ORDERED: ONDANSETRON ODT 4 MG PO PRN (13:00)
[2018-09-29] MEDS ORDERED: POLYETHYLENE GLYCOL 17 GM PACKET PO PRN (13:00)
[2018-09-29] MEDS ORDERED: LABETALOL 5MG/ML, 20ML IVPush PRN (13:00)
[2018-09-29 13:19] LABS: FREE T4 (FREE THYROXINE) 0.88 ng/dL (0.76-1.46)
[2018-09-29 13:33] LABS: MICROSCOPIC NOT IND
[2018-09-29 13:50] LABS: CULTURE INDICATED? NO
[2018-09-29] MEDS: ALBUTEROL/IPRATROPIUM 2.5MG/0.5MG, 3 ML NPPB SCH ×2 (14:45→19:23)
[2018-09-29] MEDS: DOXYCYCLINE 100MG TABLET PO SCH ×2 (15:09→21:59)
[2018-09-29] MEDS: ENOXAPARIN 40 MG/0.4 ML SQ SCH (15:09)
[2018-09-29] MEDS: methylPREDNISolone SOD SUCC 125 MG/2 ML IVPush SCH ×2 (15:09→21:59)
[2018-09-29] MEDS: FUROSEMIDE 20 MG TABLET PO SCH (18:14)
[2018-09-29 19:47] VITALS: BP 123/78
[2018-09-29] MEDS: FAMOTIDINE 20 MG/2 ML IVPush SCH (21:59)
[2018-09-30 01:22] VITALS: BP 118/72
[2018-09-30] MEDS: methylPREDNISolone SOD SUCC 125 MG/2 ML IVPush SCH ×4 (04:07→23:35)
[2018-09-30 05:17] LABS: BASOPHILS # (AUTO) 0.01 x10^3/uL (0-0.1); BASOPHILS % (AUTO) 0 % (0-1); EOSINOPHILS % (AUTO) 0 % (1-7); LYMPHOCYTES # (AUTO) 0.52 x10^3/uL (1-3.4); LYMPHOCYTES % (AUTO) 13 % (22-44); MD NO; MEAN CORPUSCULAR HEMOGLOBIN 30.8 pg (27.5-34.5); MEAN CORPUSCULAR HGB CONC 33.7 g/dL (33.2-36.2); MEAN CORPUSCULAR VOLUME 91.4 fL (81-97); MEAN PLATELET VOLUME 7.8 fL (7.4-10.4); MONOCYTES # (AUTO) 0.08 x10^3/uL (0.2-0.8); MONOCYTES % (AUTO) 2 % (2-9); NEUTROPHILS # (AUTO) 3.53 x10^3/uL (1.8-6.8); NEUTROPHILS % (AUTO) 85 % (42-75); PLATELET COUNT 202 x10^3/uL (130-400); RED BLOOD COUNT 4.63 x10^6/uL (4.38-5.82); RED CELL DISTRIBUTION WIDTH 15.3 % (9.4-14.8)
[2018-09-30 05:28] LABS: ALANINE AMINOTRANSFERASE 23 U/L (12-78); ALBUMIN 3.1 g/dL (3.4-5.0); ANION GAP 6 mmol/L (5-15); CALCIUM 8.6 mg/dL (8.5-10.1); CHLORIDE 98 mmol/L (98-107); CREATININE 0.39 mg/dL (0.7-1.3)
[2018-09-30 05:38] LABS: ALKALINE PHOSPHATASE 91 U/L (45-117); BILIRUBIN,TOTAL 0.5 mg/dL (0.2-1.0); TOTAL PROTEIN 6.2 g/dL (6.4-8.2)
[2018-09-30] MEDS: ALBUTEROL/IPRATROPIUM 2.5MG/0.5MG, 3 ML NPPB SCH ×4 (07:25→19:45)
[2018-09-30 07:34] VITALS: BP 113/73
[2018-09-30] MEDS ORDERED: ARIPIPRAZOLE 5 MG TABLET PO SCH (09:00)
[2018-09-30] MEDS ORDERED: SENNA/DOCUSATE TABLET PO SCH (09:00)
[2018-09-30] MEDS: FUROSEMIDE 20 MG TABLET PO SCH ×2 (10:24→16:32)
[2018-09-30] MEDS: FAMOTIDINE 20 MG/2 ML IVPush SCH ×2 (10:24→23:36)
[2018-09-30] MEDS: DOXYCYCLINE 100MG TABLET PO SCH ×2 (10:24→23:35)
[2018-09-30 13:18] VITALS: BP 102/65
[2018-09-30] MEDS: ENOXAPARIN 40 MG/0.4 ML SQ SCH (15:45)
[2018-09-30 20:00] VITALS: BP 106/66
[2018-10-01 02:00] VITALS: BP 102/60
[2018-10-01 04:57] LABS: BASOPHILS % (AUTO) 0 % (0-1); EOSINOPHILS % (AUTO) 0 % (1-7); LYMPHOCYTES # (AUTO) 0.46 x10^3/uL (1-3.4); LYMPHOCYTES % (AUTO) 7 % (22-44); MD NO; MEAN CORPUSCULAR HEMOGLOBIN 30.5 pg (27.5-34.5); MEAN CORPUSCULAR HGB CONC 33.2 g/dL (33.2-36.2); MEAN CORPUSCULAR VOLUME 91.8 fL (81-97); MEAN PLATELET VOLUME 7.3 fL (7.4-10.4); MONOCYTES # (AUTO) 0.23 x10^3/uL (0.2-0.8); MONOCYTES % (AUTO) 4 % (2-9); NEUTROPHILS # (AUTO) 5.86 x10^3/uL (1.8-6.8); NEUTROPHILS % (AUTO) 89 % (42-75); PLATELET COUNT 203 x10^3/uL (130-400); RED BLOOD COUNT 4.53 x10^6/uL (4.38-5.82); RED CELL DISTRIBUTION WIDTH 15.7 % (9.4-14.8)
[2018-10-01 05:09] LABS: ALBUMIN 3.1 g/dL (3.4-5.0); ANION GAP 6 mmol/L (5-15); CALCIUM 8.2 mg/dL (8.5-10.1); CHLORIDE 98 mmol/L (98-107)
[2018-10-01] MEDS: methylPREDNISolone SOD SUCC 125 MG/2 ML IVPush SCH (05:22)
== END 2018-10-01 07:20 | disposition left against medical advice (07) | DRG 189 ==
LOC: ED 08:06 → EDIP 09:49 → 3NE 11:34
PROVIDERS: ADMIT Hospitalist; ATTEND Hospitalist
DX: J96.01 Acute respiratory failure with hypoxia (principal); J44.1 Chronic obstructive pulmonary disease with (acute) exacerbation; F17.210 Nicotine dependence, cigarettes, uncomplicated; F20.9 Schizophrenia, unspecified; G89.29 Other chronic pain; M25.552 Pain in left hip; I05.0 Rheumatic mitral stenosis; I11.9 Hypertensive heart disease without heart failure; I71.2 Thoracic aortic aneurysm, without rupture; Z91.14 Patient's other noncompliance with medication regimen; Z95.0 Presence of cardiac pacemaker; Z53.21 Procedure and treatment not carried out due to patient leaving prior to being seen by health care provider
CPT/HCPCS: 36415; 73502; J3490; J7620; 71046; 80048; 80053; 81003; 82040; 83735; 84100; 84439; 84443; 85025; 87040; 93005; 94640; G0378; J1650; J2930; J7512

== ENCOUNTER 2018-10-25 05:36 | Emergency (ER) | payer MEDICAID ==
[~2018-10-25] VITALS: Ht 167.6 cm; Wt 76.0 kg
--- NOTE | 2018-10-25 06:11 | NUR ---
PT C/O COUGH AND SOB. PT STATES RESP HX---SUPPOSED TO BE USING INHALER THAT HE DOES NOT HAVE AT THIS TIME. COUGH IN NONPRODUCTIVE. NO S/S OF ACUTE RESP DISTRESS. PT ABLE TO SPEAK FULL SENTENCES. LUNG SOUNDS DIMINISHED. PT PLACED ON 2L NC FOR COMFORT. PT PACED RHYTHM ON MONITOR. XRAY COMPLETED AT BEDSIDE. LABS DRAWN. WARM BLANKET GIVEN. CALL LIGHT IN REACH.
[2018-10-25 06:29] LABS: BASOPHILS # (AUTO) 0.02 x10^3/uL (0-0.1); BASOPHILS % (AUTO) 0 % (0-1); EOSINOPHILS # (AUTO) 0.21 x10^3/uL (0-0.4); EOSINOPHILS % (AUTO) 3 % (1-7); LYMPHOCYTES # (AUTO) 1.06 x10^3/uL (1-3.4); LYMPHOCYTES % (AUTO) 14 % (22-44); MD NO; MEAN CORPUSCULAR HEMOGLOBIN 30.6 pg (27.5-34.5); MEAN CORPUSCULAR HGB CONC 33.7 g/dL (33.2-36.2); MEAN CORPUSCULAR VOLUME 90.8 fL (81-97); MEAN PLATELET VOLUME 7.6 fL (7.4-10.4); MONOCYTES # (AUTO) 0.44 x10^3/uL (0.2-0.8); MONOCYTES % (AUTO) 6 % (2-9); NEUTROPHILS # (AUTO) 6.07 x10^3/uL (1.8-6.8); NEUTROPHILS % (AUTO) 78 % (42-75); PLATELET COUNT 195 x10^3/uL (130-400); RED BLOOD COUNT 4.88 x10^6/uL (4.38-5.82); RED CELL DISTRIBUTION WIDTH 15.3 % (9.4-14.8)
[2018-10-25 06:36] LABS: INTERNATIONAL NORMALIZED RATIO 1.02 (0.93-1.1); PROTHROMBIN TIME 10.7 Seconds (9.6-11.5)
[2018-10-25 06:39] LABS: ALANINE AMINOTRANSFERASE 23 U/L (12-78); ALBUMIN 3.7 g/dL (3.4-5.0); ANION GAP 5 mmol/L (5-15); CALCIUM 8.2 mg/dL (8.5-10.1); CHLORIDE 97 mmol/L (98-107)
[2018-10-25 06:42] LABS: ALKALINE PHOSPHATASE 106 U/L (45-117); BILIRUBIN,TOTAL 0.6 mg/dL (0.2-1.0); TOTAL PROTEIN 6.7 g/dL (6.4-8.2); TROPONIN I < 0.015 ng/mL (0.000-0.045)
[2018-10-25] MEDS ORDERED: ALBUTEROL/IPRATROPIUM 2.5MG/0.5MG, 3 ML ONE (06:44)
--- NOTE | 2018-10-25 06:45 | NUR ---
RESP AT BEDSIDE.
--- NOTE | 2018-10-25 06:56 | NUR ---
REPORT TO CHRISTIAN EVANGELISTA.
[2018-10-25] MEDS ORDERED: ALBUTEROL/IPRATROPIUM 2.5MG/0.5MG, 3 ML NPPB ONE (07:00)
--- NOTE | 2018-10-25 07:00 | NUR ---
BEDSIDE HANDOFF REPORT FROM NOAM EVANGELISTA. PT RESTING ON [facility]. ALL CINCERNS ADRESSED AT THIS TIME. CP MONITORS IN PLACE. RAMIRO. AWAITING RAD RESULTS.
[2018-10-25 07:01] VITALS: BP 136/87
--- NOTE | 2018-10-25 07:54 | NUR ---
Patient/Caregiver given discharge instructions and they have confirmed that they understand the instructions. Patient ambulatory with steady gait. PT LEFT WITH ALL PERSONAL BELONGINGS.
== END 2018-10-25 07:55 | disposition home or self-care (01) ==
LOC: ED 06:19
DX: J44.9 Chronic obstructive pulmonary disease, unspecified (principal); J20.9 Acute bronchitis, unspecified; B97.89 Other viral agents as the cause of diseases classified elsewhere; F17.200 Nicotine dependence, unspecified, uncomplicated; I50.9 Heart failure, unspecified; E11.9 Type 2 diabetes mellitus without complications
CPT/HCPCS: 36415; 71045; 80053; 84484; 85025; 85610; 85730; 94640; 99284; J7620

== ENCOUNTER 2018-10-26 09:14 | Emergency (ER) | payer MEDICAID ==
[~2018-10-26] VITALS: Ht 175.3 cm; Wt 84.0 kg
--- NOTE | 2018-10-26 09:33 | NUR ---
Pt found by bystanders lying outside on sidewalk. Pt found by EMS to be unable to stand/ambulate. Smells strongly of ETOH, incontinent of urine. NPA L nare IP. 6l via NC to maintain sats at 98%, 90% RA. Continuous pulse oximetry applied, SR up x2, call light & urinal within reach.
--- NOTE | 2018-10-26 10:06 | NUR ---
Eupneic, no snoring, remains on supplemental oxygen w/ NPA IP. Labs drawn, CT head ordered. Curtain in room remains open for pt observation .
--- NOTE | 2018-10-26 10:48 | NUR ---
Back from CT. VSS, remains sleeping.
--- NOTE | 2018-10-26 11:30 | NUR ---
Pulls off oxygen occasionally, but remains in bed. Will continue to monitor.
--- NOTE | 2018-10-26 12:48 | NUR ---
Slightly more alert, awakens to V. Provided w/ meal tray.
--- NOTE | 2018-10-26 13:48 | NUR ---
Pt awakens to V. Oriented x 2, slurred speech. Pulled IV out & took off SPO2 & NIBP monitors. Oxygen reapplied, monitors put back.
[2018-10-26] MEDS ORDERED: ALBUTEROL/IPRATROPIUM 2.5MG/0.5MG, 3 ML NPPB ONE (14:00)
[2018-10-26] MEDS ORDERED: ALBUTEROL/IPRATROPIUM 2.5MG/0.5MG, 3 ML ONE (14:21)
--- NOTE | 2018-10-26 14:37 | NUR ---
Unsuccessful ambulation trial. Pt got OOB unassisted & ran out into hallway stumbling & almost falling but caught before fall. Assisted back to bed, keturah lamas completed. EMT Matt pulled to sit with pt due to fall risk.
[2018-10-26] MEDS ORDERED: THIAMINE 100MG TABLET ONE (14:41)
[2018-10-26] MEDS ORDERED: THIAMINE 100MG TABLET PO ONE (15:00)
[2018-10-26 15:10] VITALS: BP 117/49
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
--- NOTE | 2018-10-26 15:50 | NUR ---
Pt given cane to ambulate with & has slow shuffling gait unassisted. Ambulated pt past Dr. Desir to witness what pt reports as his nl. Ok to d/c. Pt advised to use cane provided, no alcohol. Verb. understanding. Pulled out own IV several hrs ago.
== END 2018-10-26 16:12 | disposition home or self-care (01) ==
LOC: ED 11:28
DX: F10.221 Alcohol dependence with intoxication delirium (principal); Z72.9 Problem related to lifestyle, unspecified; Z59.0 Homelessness; I50.9 Heart failure, unspecified; J43.9 Emphysema, unspecified; E11.9 Type 2 diabetes mellitus without complications; F20.9 Schizophrenia, unspecified; Z95.0 Presence of cardiac pacemaker; Z95.1 Presence of aortocoronary bypass graft; Z95.2 Presence of prosthetic heart valve
CPT/HCPCS: 36415; 70450; 80307; 94640; 99284; J7620

== ENCOUNTER 2018-11-29 12:27 | Inpatient (IN) | payer MEDICAID ==
[~2018-11-29] VITALS: Ht 180.3 cm; Wt 71.5 kg
--- NOTE | 2018-11-29 12:59 | NUR ---
UA sent to lab. Family member at bedside. No other needs.
[2018-11-29 13:12] LABS: MICROSCOPIC AUTO
[2018-11-29 13:15] LABS: BASOPHILS % (AUTO) 0 % (0-1); EOSINOPHILS # (AUTO) 0.05 x10^3/uL (0-0.4); EOSINOPHILS % (AUTO) 0 % (1-7); LYMPHOCYTES # (AUTO) 0.57 x10^3/uL (1-3.4); LYMPHOCYTES % (AUTO) 5 % (22-44); MD NO; MEAN CORPUSCULAR HEMOGLOBIN 30.2 pg (27.5-34.5); MEAN CORPUSCULAR HGB CONC 33.2 g/dL (33.2-36.2); MEAN CORPUSCULAR VOLUME 90.9 fL (81-97); MEAN PLATELET VOLUME 7.9 fL (7.4-10.4); MONOCYTES # (AUTO) 0.56 x10^3/uL (0.2-0.8); MONOCYTES % (AUTO) 4 % (2-9); NEUTROPHILS # (AUTO) 11.61 x10^3/uL (1.8-6.8); NEUTROPHILS % (AUTO) 91 % (42-75); PLATELET COUNT 155 x10^3/uL (130-400); RED BLOOD COUNT 4.87 x10^6/uL (4.38-5.82); RED CELL DISTRIBUTION WIDTH 15.3 % (9.4-14.8)
[2018-11-29 13:16] LABS: CULTURE INDICATED? YES
[2018-11-29 13:25] LABS: ALANINE AMINOTRANSFERASE 22 U/L (12-78); ALBUMIN 3.5 g/dL (3.4-5.0); ANION GAP 6 mmol/L (5-15); CALCIUM 8.2 mg/dL (8.5-10.1); CHLORIDE 96 mmol/L (98-107); CREATININE 0.45 mg/dL (0.7-1.3)
[2018-11-29 13:28] LABS: ALKALINE PHOSPHATASE 101 U/L (45-117); BILIRUBIN,TOTAL 1.3 mg/dL (0.2-1.0); TOTAL PROTEIN 6.6 g/dL (6.4-8.2)
[2018-11-29] MEDS ORDERED: SODIUM CHLORIDE 0.9% 1,000 ML IV ONE (13:33)
[2018-11-29] MEDS ORDERED: PHENAZOPYRIDINE 200 MG TABLET ONE (13:48)
[2018-11-29] MEDS ORDERED: CEFTRIAXONE PMX 1GM/50ML 50 ML ONE (13:49)
--- NOTE | 2018-11-29 13:57 | NUR ---
pt upright on gurney awake & calm, responds to staff, NAD, comfort measures provided, awaiting sisters return to BS, call light within reach.
[2018-11-29] MEDS ORDERED: PHENAZOPYRIDINE 200 MG TABLET PO ONE (14:00)
[2018-11-29] MEDS ORDERED: SODIUM CHLORIDE FLUSH 10ML SYR IVF ONE (14:00)
[2018-11-29] MEDS ORDERED: CEFTRIAXONE PMX 1GM/50ML 50 ML IVPB ONE (14:00)
--- NOTE | 2018-11-29 15:00 | NUR ---
Report given to Qing
--- NOTE | 2018-11-29 15:05 | NUR ---
Margarita called report to recieving RN. this RN did not assume care
--- NOTE | 2018-11-29 15:15 | NUR ---
IV infusing on admit
[2018-11-29 15:18] LABS: OSMOLALITY,URINE 636 mOsm/kg (500-850)
[2018-11-29 15:30] VITALS: BP 106/67
[2018-11-29] MEDS ORDERED: ONDANSETRON ODT 4 MG PO PRN (16:00)
[2018-11-29] MEDS ORDERED: BISACODYL 10 MG SUPP PR PRN (16:00)
[2018-11-29] MEDS ORDERED: ZOLPIDEM 5MG TABLET PO PRN (16:00)
[2018-11-29] MEDS ORDERED: DOCUSATE 100 MG CAPSULE PO PRN (16:00)
[2018-11-29] MEDS ORDERED: hydrALAzine 20 MG/ML, 1ML IVPush PRN (16:00)
[2018-11-29] MEDS ORDERED: LABETALOL 5MG/ML, 20ML IVPush PRN ×2 (16:00)
[2018-11-29] MEDS ORDERED: CEFTRIAXONE PMX 1GM/50ML 50 ML IV SCH (16:00)
[2018-11-29] MEDS ORDERED: ONDANSETRON 2MG/ML, 2ML IVPush PRN (16:00)
[2018-11-29] MEDS ORDERED: LACTATED RINGERS 1,000 ML IV SCH (16:00)
[2018-11-29] MEDS ORDERED: POLYETHYLENE GLYCOL 17 GM PACKET PO PRN (16:00)
[2018-11-29] MEDS ORDERED: LIDODERM 5% PATCH TD PRN (16:00)
[2018-11-29] MEDS: NICOTINE 21 MG/24 HR PATCH.TD24 TD SCH (16:29)
[2018-11-29] MEDS: HEPARIN 5,000 UNITS/ML, 1ML SQ SCH (16:30)
[2018-11-29 16:52] LABS: HCT (SEDRATE) 44.2 % (39.2-51.8)
[2018-11-29 18:50] LABS: MICROSCOPIC INDICATED
[2018-11-29 18:53] LABS: CULTURE INDICATED? YES
[2018-11-29 19:44] VITALS: BP 112/76
[2018-11-29] MEDS: SODIUM CHLORIDE 0.9% 1,000 ML IV SCH (20:58)
[2018-11-29] MEDS: FAMOTIDINE 20 MG TABLET PO SCH (20:58)
[2018-11-29] MEDS: ACETAMINOPHEN 325 MG TABLET PO PRN (22:12)
[2018-11-30] MEDS: CEFTRIAXONE PMX 1GM/50ML 50 ML IV SCH ×2 (00:19→11:53)
[2018-11-30 01:06] VITALS: BP 102/62
[2018-11-30 05:57] LABS: BASOPHILS # (AUTO) 0.02 x10^3/uL (0-0.1); BASOPHILS % (AUTO) 0 % (0-1); EOSINOPHILS # (AUTO) 0.14 x10^3/uL (0-0.4); EOSINOPHILS % (AUTO) 2 % (1-7); LYMPHOCYTES # (AUTO) 0.65 x10^3/uL (1-3.4); LYMPHOCYTES % (AUTO) 7 % (22-44); MD NO; MEAN CORPUSCULAR HEMOGLOBIN 30.9 pg (27.5-34.5); MEAN CORPUSCULAR HGB CONC 33.7 g/dL (33.2-36.2); MEAN CORPUSCULAR VOLUME 91.6 fL (81-97); MEAN PLATELET VOLUME 8.1 fL (7.4-10.4); MONOCYTES # (AUTO) 0.68 x10^3/uL (0.2-0.8); MONOCYTES % (AUTO) 7 % (2-9); NEUTROPHILS # (AUTO) 7.79 x10^3/uL (1.8-6.8); NEUTROPHILS % (AUTO) 84 % (42-75); PLATELET COUNT 141 x10^3/uL (130-400); RED BLOOD COUNT 4.47 x10^6/uL (4.38-5.82); RED CELL DISTRIBUTION WIDTH 15.4 % (9.4-14.8)
[2018-11-30 05:58] LABS: ANION GAP 4 mmol/L (5-15); CALCIUM 8.2 mg/dL (8.5-10.1); CHLORIDE 98 mmol/L (98-107); CHOLESTEROL, TOTAL 132 mg/dL (140-239); TRIGLYCERIDES 72 mg/dL (50-200); VLDL CHOLESTEROL 14 mg/dL (0-25)
[2018-11-30 06:08] LABS: CHOL/HDL RATIO 1.8; HDL CHOL % 55 % (26-37); HDL CHOLESTEROL (DIRECT) 72 mg/dL (40-60); LDL CHOLESTEROL,CALCULATED 46 mg/dL (54-169); LDL/HDL RATIO 0.6 (0.5-3.0)
[2018-11-30 07:27] VITALS: BP 117/75
[2018-11-30] MEDS: ACETAMINOPHEN 325 MG TABLET PO PRN ×2 (07:40→16:39)
[2018-11-30] MEDS: FAMOTIDINE 20 MG TABLET PO SCH ×2 (07:41→20:41)
[2018-11-30] MEDS: HEPARIN 5,000 UNITS/ML, 1ML SQ SCH ×3 (07:41→16:39)
[2018-11-30] MEDS ORDERED: ARIPIPRAZOLE 10 MG TABLET PO SCH (09:00)
[2018-11-30] MEDS: SODIUM CHLORIDE 0.9% 1,000 ML IV SCH (11:13)
[2018-11-30 13:06] VITALS: BP 104/66
[2018-11-30] MEDS: NICOTINE 21 MG/24 HR PATCH.TD24 TD SCH (16:39)
[2018-11-30 18:52] VITALS: BP 104/61
[2018-12-01] MEDS: HEPARIN 5,000 UNITS/ML, 1ML SQ SCH (00:08)
[2018-12-01] MEDS: CEFTRIAXONE PMX 1GM/50ML 50 ML IV SCH (00:08)
[2018-12-01 01:26] VITALS: BP 113/69
[2018-12-01 05:19] LABS: BASOPHILS # (AUTO) 0.02 x10^3/uL (0-0.1); BASOPHILS % (AUTO) 0 % (0-1); EOSINOPHILS # (AUTO) 0.27 x10^3/uL (0-0.4); EOSINOPHILS % (AUTO) 5 % (1-7); LYMPHOCYTES # (AUTO) 0.76 x10^3/uL (1-3.4); LYMPHOCYTES % (AUTO) 14 % (22-44); MD NO; MEAN CORPUSCULAR HEMOGLOBIN 30.5 pg (27.5-34.5); MEAN CORPUSCULAR VOLUME 92.4 fL (81-97); MEAN PLATELET VOLUME 8.1 fL (7.4-10.4); MONOCYTES # (AUTO) 0.76 x10^3/uL (0.2-0.8); MONOCYTES % (AUTO) 14 % (2-9); NEUTROPHILS # (AUTO) 3.54 x10^3/uL (1.8-6.8); NEUTROPHILS % (AUTO) 66 % (42-75); PLATELET COUNT 166 x10^3/uL (130-400); RED BLOOD COUNT 4.56 x10^6/uL (4.38-5.82)
[2018-12-01 05:28] LABS: ANION GAP 6 mmol/L (5-15); CALCIUM 8.3 mg/dL (8.5-10.1); CHLORIDE 97 mmol/L (98-107); CREATININE 0.26 mg/dL (0.7-1.3)
[2018-12-01 07:30] VITALS: BP 121/70
== END 2018-12-01 10:56 | disposition left against medical advice (07) | DRG 872 ==
LOC: ED 12:53 → EDIP 13:49 → 3NE 15:19
PROVIDERS: ADMIT Hospitalist; ATTEND Hospitalist
DX: A41.9 Sepsis, unspecified organism (principal); E87.1 Hypo-osmolality and hyponatremia; I50.30 Unspecified diastolic (congestive) heart failure; E11.9 Type 2 diabetes mellitus without complications; F10.20 Alcohol dependence, uncomplicated; F12.90 Cannabis use, unspecified, uncomplicated; Z16.39 Resistance to other specified antimicrobial drug; Z53.21 Procedure and treatment not carried out due to patient leaving prior to being seen by health care provider; F17.200 Nicotine dependence, unspecified, uncomplicated; F20.9 Schizophrenia, unspecified; J44.9 Chronic obstructive pulmonary disease, unspecified; N30.91 Cystitis, unspecified with hematuria; Z86.79 Personal history of other diseases of the circulatory system; Z91.81 History of falling; Z95.1 Presence of aortocoronary bypass graft; Z95.2 Presence of prosthetic heart valve
CPT/HCPCS: 36415; 74176; 80048; 80053; 80061; 80307; 81001; 83605; 83735; 83930; 83935; 84443; 85025; 85651; 87040; 87077; 87086; 87147; 87186; 96365; 99285; G0378; J0696; J1644; J7030

== ENCOUNTER 2020-08-01 01:08 | Emergency (ER) | payer MEDICAID ==
[~2020-08-01] VITALS: Ht 167.6 cm; Wt 102.4 kg
[~2020-08-01 01:08] MED LIST changes: +DOXY-162 PO; -DOXY100T9 PO; +LACT10SO24 PO; -LACT10SO5 PO
--- NOTE | 2020-08-01 01:39 | NUR ---
THIS IS A 59Y M THAT COMES IN TONIGHT FOR "FEELING HEAVY AND FAT ALL OVER" PT DENIES CP/ SOB, STS HE WALKED HERE AND HAS BEEN FEELING THIS WAY FOR ABOUT A MONTH. RESP EVEN AND UNLABORED.
[2020-08-01 02:37] LABS: BASOPHILS % (AUTO) 1 % (0-1); EOSINOPHILS % (AUTO) 4 % (1-7); LYMPHOCYTES % (AUTO) 23 % (22-44); MEAN CORPUSCULAR HEMOGLOBIN 30.8 pg (27.5-34.5); MEAN CORPUSCULAR HGB CONC 33.6 g/dL (33.2-36.2); MEAN PLATELET VOLUME 8.4 fL (7.4-10.4); MONOCYTES % (AUTO) 10 % (2-9); NEUTROPHILS % (AUTO) 62 % (42-75); PLATELET COUNT 159 x10^3/uL (130-400); RED BLOOD COUNT 4.77 x10^6/uL (4.38-5.82); RED CELL DISTRIBUTION WIDTH 14.8 % (9.4-14.8)
[2020-08-01 02:38] LABS: MD NO
--- NOTE | 2020-08-01 02:38 | NUR ---
WHILE PT SLEEPING DEEPLY, O2 SAT DOWN TO 88%. PT PLACED ON 2LNC AND SAT NOW UP TO 95%
[2020-08-01 02:45] LABS: ALBUMIN 3.4 g/dL (3.4-5.0); ANION GAP 3 mmol/L (5-15); CALCIUM 8.3 mg/dL (8.5-10.1); CHLORIDE 105 mmol/L (98-107); CREATININE 0.54 mg/dL (0.7-1.3)
[2020-08-01 02:49] LABS: TROPONIN I 0.021 ng/mL (0.000-0.045)
--- NOTE | 2020-08-01 03:00 | NUR ---
DR HERNANDEZ AT BEDSIDE FOR ASSESSMENT AND POC
[2020-08-01 03:57] VITALS: BP 129/85
--- NOTE | 2020-08-01 03:57 | NUR ---
Patient/Caregiver given discharge instructions and they have confirmed that they understand the instructions. Patient ambulatory with steady gait.
== END 2020-08-01 04:03 | disposition home or self-care (01) ==
LOC: ED 02:31
DX: J18.9 Pneumonia, unspecified organism (principal); R06.00 Dyspnea, unspecified; R94.31 Abnormal electrocardiogram [ECG] [EKG]; J43.9 Emphysema, unspecified; I50.9 Heart failure, unspecified; E11.9 Type 2 diabetes mellitus without complications; F17.210 Nicotine dependence, cigarettes, uncomplicated; Z95.0 Presence of cardiac pacemaker
CPT/HCPCS: 36415; 71045; 80048; 82040; 83880; 84484; 85025; 93005; 99285; 99406